=== PATIENT | female | born 1990 | race Caucasian/White ===

== ENCOUNTER 2016-10-20 16:10 | Inpatient (IN) | payer SELFPAY ==
--- NOTE | 2016-10-20 16:55 | ER Document Report ---
ED Medical Screen (RME) - General Chief Complaint: Neck Problem Stated Complaint: POSSIBLE ABSCESS Time Seen by Provider: 10/20/16 16:17 Mode of Arrival: Ambulatory Information source: Patient TRAVEL OUTSIDE OF THE [place] IN LAST 30 DAYS: No - HPI Patient complains to provider of: Left neck pain and swelling Notes: 10/20/16 16:54 Patient is a 26-year-old female presenting to the emergency room complaining of 3 day history of swelling with redness and pain to the left neck, denies any injury or trauma, no history of similar symptoms previously, patient does have a tattoo on the site but states it has been there for years, denies any IV drug abuse - Related Data Allergies/Adverse Reactions: No Known Allergies Allergy (Verified 10/20/16 16:13) Past Medical History - Social History Frequency of alcohol use: Social Drug Abuse: None - Past Medical History Cardiac Medical History: Reports: Hx Hypertension Renal/ Medical History: Reports: Hx Ovarian Cysts. Denies: Hx Peritoneal Dialysis GI Medical History: Reports: Hx Endoscopy Musculoskeltal Medical History: Reports Hx Musculoskeletal Trauma Psychiatric Medical History: Reports: Hx Anxiety, Hx Depression Traumatic Medical History: Reports: Hx Fractures - Elbow Past Surgical History: Reports: Hx Adenoidectomy, Hx Oral Surgery - [place] teeth , Hx Tonsillectomy - Immunizations Hx Diphtheria, Pertussis, Tetanus Vaccination: No Physical Exam - Vital signs Vitals: Temp Pulse Resp BP Pulse Ox 98.7 F 105 H 20 144/86 H 95 10/20/16 16:14 10/20/16 16:14 10/20/16 16:14 10/20/16 16:14 10/20/16 16:14 Course - Vital Signs Vital signs: Temp Pulse Resp BP Pulse Ox 98.7 F 105 H 20 144/86 H 95 10/20/16 16:14 10/20/16 16:14 10/20/16 16:14 10/20/16 16:14 10/20/16 16:14
[2016-10-20] MEDS ORDERED: CLINDAMYCIN PHOSPHATE INJ 300 MG/2 ML SDV IV ONE (17:05)
[2016-10-20 17:19] LABS: ABSOLUTE EOSINOPHILS # (AUTO) 0.2 10^3/uL (0.0-0.6); ABSOLUTE MONOCYTES (AUTO) 0.9 10^3/uL (0.1-1.4); ABSOLUTE NEUT (AUTO) 6.4 10^3/uL (1.7-8.2); BASOPHILS % (AUTO) 0.3 % (0-2); HEMATOCRIT 39.8 % (36.0-47.0); HEMOGLOBIN 13.9 g/dL (12.0-15.5); HGB HCT DIFFERENCE 1.9; LYMPHOCYTES % (AUTO) 28.5 % (13-45); MEAN CORPUSCULAR HEMOGLOBIN 30.9 pg (27.0-33.4); MEAN CORPUSCULAR VOLUME 88 fl (80-97); MONOCYTES % (AUTO) 8.7 % (3-13); RED BLOOD COUNT 4.51 10^6/uL (3.72-5.28); RED CELL DISTRIBUTION WIDTH 13.8 % (11.5-14.0); SEGMENTED NEUTROPHILS % (AUTO) 60.5 % (42-78); WHITE BLOOD COUNT 10.6 10^3/uL (4.0-10.5)
[2016-10-20 17:35] LABS: ALANINE AMINOTRANSFERASE 25 U/L (9-52); ALBUMIN 3.9 g/dL (3.5-5.0); ALKALINE PHOSPHATASE 102 U/L (38-126); ANION GAP 11 (5-19); ASPARTATE AMINO TRANSFERASE 20 U/L (14-36); BILIRUBIN,DIRECT 0.4 mg/dL (0.0-0.4); BILIRUBIN,TOTAL 0.6 mg/dL (0.2-1.3); BLOOD UREA NITROGEN 2 mg/dL (7-20); CALCIUM 9.6 mg/dL (8.4-10.2); CARBON DIOXIDE 32 mmol/L (22-30); CHLORIDE 95 mmol/L (98-107); CREATININE RESULT 0.54 mg/dL (0.52-1.25); GLUCOSE 87 mg/dL (75-110); POTASSIUM 3.1 mmol/L (3.6-5.0); SODIUM 137.6 mmol/L (137-145); TOTAL PROTEIN 7.3 g/dL (6.3-8.2)
[2016-10-20] MEDS ORDERED: NORMAL SALINE 1000 ML 1,000 ML IV ONE (17:42)
[2016-10-20] MEDS ORDERED: MORPHINE SULFATE 10 MG/ML INJ IV ONE (17:42)
--- NOTE | 2016-10-20 17:43 | ER Document Report ---
ED General - General Chief Complaint: Neck Problem Stated Complaint: POSSIBLE ABSCESS Time Seen by Provider: 10/20/16 16:17 Mode of Arrival: Ambulatory Information source: Patient Notes: 26-year-old female presents with 4 day duration of swelling left lateral neck. Patient denies any fevers states he feels very warm tender to palpation TRAVEL OUTSIDE OF THE [place] IN LAST 30 DAYS: No - HPI Onset: Last week - Hoarseness for 1 week Onset/Duration: Persistent Quality of pain: Achy Severity: Mild Pain Level: 2 Associated symptoms: None Exacerbated by: Denies Relieved by: Denies Similar symptoms previously: No Recently seen / treated by doctor: No - Related Data Allergies/Adverse Reactions: No Known Allergies Allergy (Verified 10/20/16 16:13) Past Medical History - General Information source: Patient - Social History Smoking Status: Current Every Day Smoker Cigarette use (# per day): Yes Chew tobacco use (# tins/day): No Smoking Education Provided: No Frequency of alcohol use: Social Drug Abuse: None Family History: Arthritis, CAD, CVA, DM, Hyperlipidemia, Hypertension, Malignancy, Thyroid Disfunction - Past Medical History Cardiac Medical History: Reports: Hx Hypertension Renal/ Medical History: Reports: Hx Ovarian Cysts. Denies: Hx Peritoneal Dialysis GI Medical History: Reports: Hx Endoscopy Musculoskeltal Medical History: Reports Hx Musculoskeletal Trauma Psychiatric Medical History: Reports: Hx Anxiety, Hx Depression Traumatic Medical History: Reports: Hx Fractures - Elbow Past Surgical History: Reports: Hx Adenoidectomy, Hx Oral Surgery - [place] teeth , Hx Tonsillectomy - Immunizations Hx Diphtheria, Pertussis, Tetanus Vaccination: No Review of Systems - Review of Systems Notes: REVIEW OF SYSTEMS: CONSTITUTIONAL : Denies fever, chills, or sweats. Denies recent illness. EENT: Admits to left lateral neck pain CARDIOVASCULAR: Denies chest pain. Denies palpitations or racing or irregular heart beat. Denies ankle edema. RESPIRATORY: Denies cough, cold, or chest congestion. Denies shortness of breath, difficulty breathing, or wheezing. GASTROINTESTINAL: Denies abdominal pain or distention. Denies nausea, vomiting , or diarrhea. Denies blood in vomitus, stools, or per rectum. Denies black, tarry stools. Denies constipation. GENITOURINARY: Denies difficulty urinating, painful urination, burning, frequency, blood in urine, or discharge. FEMALE GENITOURINARY: Denies vaginal bleeding, heavy or abnormal periods, irregular periods. Denies vaginal discharge or odor. MUSCULOSKELETAL: Denies back or neck pain or stiffness. Denies joint pain or swelling. SKIN: Denies rash, lesions or sores. HEMATOLOGIC : Denies easy bruising or bleeding. LYMPHATIC: Denies swollen, enlarged glands. NEUROLOGICAL: Denies confusion or altered mental status. Denies passing out or loss of consciousness. Denies dizziness or lightheadedness. Denies headache. Denies weakness or paralysis or loss of use of either side. Denies problems with gait or speech. Denies sensory loss, numbness, or tingling. Denies seizures. PSYCHIATRIC: Denies anxiety or stress. Denies depression, suicidal ideation, or homicidal ideation. ALL OTHER SYSTEMS REVIEWED AND NEGATIVE. PHYSICAL EXAMINATION: GENERAL: Well-appearing, well-nourished and in no acute distress. HEAD: Atraumatic, normocephalic. EYES: Pupils equal round and reactive to light, extraocular movements intact, conjunctiva are normal. ENT: Nares patent, oropharynx clear without exudates. Moist mucous membranes. NECK: Normal range of motion, supple without lymphadenopathy LUNGS: Breath sounds clear to auscultation bilaterally and equal. No wheezes rales or rhonchi. HEART: Regular rate and rhythm without murmurs ABDOMEN: Soft, nontender, nondistended abdomen. No guarding, no rebound. No masses appreciated. Female : deferred Musculoskeletal: Normal range of motion, no pitting or edema. No cyanosis. NEUROLOGICAL: Cranial nerves grossly intact. Normal speech, normal gait. Normal sensory, motor exams PSYCH: Normal mood, normal affect. SKIN: Area of erythema of the whole lateral left neck stopping at the jawline fluctuance and firmness of 5 x 6 cm area on the left Dictation was performed using [employer] voice recognition software Physical Exam - Vital signs Vitals: Temp Pulse Resp BP Pulse Ox 98.7 F 105 H 20 144/86 H 95 10/20/16 16:14 10/20/16 16:14 10/20/16 16:14 10/20/16 16:14 10/20/16 16:14 Course - Re-evaluation Re-evalutation: 10/20/16 17:[address] pending at this time concern for abscess noted surgeon immediately brought into the room who agrees with my assessment 10/20/16 18:41 ct notes cellulitis, dr pool requests medicine admission 10/20/16 20:37 Bedside ultrasound performed by surgeon notes no abscess either, I will admit the patient to hospitalist service - Vital Signs Vital signs: Temp Pulse Resp BP Pulse Ox 98.5 F 97 16 134/83 H 96 10/20/16 20:10 10/20/16 20:10 10/20/16 20:10 10/20/16 20:10 10/20/16 20:10 - Laboratory Result Diagrams: 10/20/16 17:04 10/20/16 17:04 Laboratory results interpreted by me: 10/20/16 10/20/16 17:04 17:04 WBC 10.6 H Potassium 3.1 L Chloride 95 L Carbon Dioxide 32 H BUN 2 L - Diagnostic Test Radiology reviewed: Image reviewed, Reports reviewed - Cellulitis Discharge - Discharge Clinical Impression: Cellulitis Qualifiers: Site of cellulitis: neck Qualified Code(s): L03.221 - Cellulitis of neck Condition: Stable Disposition: ADMITTED INPATIENT Admitting Provider: Hospitalist Unit Admitted: Medical Floor
--- NOTE | 2016-10-20 18:22 | RADIOLOGY REPORT (SQ) ---
EXAM DESCRIPTION: CT SOFT TISSUE NECK WITH COMPLETED DATE/TIME: 10/20/2016 6:08 pm REASON FOR STUDY: LEFT NECK SWELLING COMPARISON: None. TECHNIQUE: Post IV contrasted scanning from skull base through lung apices with review of bone, soft tissue and lung windows. Reconstructed coronal and sagittal MPR images reviewed. All images stored on PACS. All CT scanners at this facility use dose modulation, iterative reconstruction, and/or weight based d osing when appropriate to reduce radiation dose to as low as reasonably achievable (ALARA). [facility]: Dose Right [facility]: CareDose [facility]: Dose Right [facility]: Teradose 4D [facility]: [employer]oinvest CONTRAST TYPE AND DOSE: contrast/concentration: Isovue 370.00 mg/ml; Total Contrast Delivered: 75.0 ml; Total Saline Delivered: 55.0 ml RENAL FUNCTION: None required. The patient is less than 50 years old. RADIATION DOSE: Up-to-date CT equipment and radiation dose reduction techniques were employed. CTDIv ol: 17.4 mGy. DLP: 507 mGy-cm. . LIMITATIONS: None. FINDINGS: SKULL BASE: Intact. MAJOR SALIVARY GLANDS: No solid or cystic masses. No inflammatory changes. LYMPHADENOPATHY: Generally subcentimeter scattered bilateral lymph nodes. MUCOSAL MASSES OR ASYMMETRY: No mucosal masses or asymmetry. LARYNX/CORDS: No abnormal findings. VASCULAR STRUCTURES: The major vessels are patent. LUNG APICES: Clear. BONES: Intact. THYROID: Normal size. No masses. PARANASAL SINUSES: Clear. OTHER: There is skin thickening and subcutaneous stranding over the left neck roughly below the level of the angle of the jaw extending inferiorly. The left sternocleidomastoid looks slightly enlarged. Along its superficial aspect, there is a focal area of roughly rounded low density which measures a pproximately 1 cm. This could represent a developing small abscess. Please see the following images , axial image 43 and adjacent, coronal image 44 and adjacent. IMPRESSION: 1. Inflammatory changes are suggested in the left neck, likely cellulitis with associate d left sternocleidomastoid myositis. Worrisome for infection. No radiopaque foreign body. Potentia l forming abscess along the superficial aspect of the left sternocleidomastoid. At present, this is ill-defined and may not be drainable. TECHNICAL DOCUMENTATION: JOB ID: [id number] Quality ID # [id number]: Final reports with documentation of one or more dose reduction techniques (e.g., Au tomated exposure control, adjustment of the mA and/or kV according to patient size, use of iterative reconstruction technique) 2010 [employer]- All Rights Reserved
--- NOTE | 2016-10-20 19:47 | OPERATIVE REPORT E ---
Operative Report NAME: CHERYL EARL : 1990 AGE: 26Y DATE OF SURGERY: 10/20/2016 ROOM: PREOPERATIVE DIAGNOSIS: Cellulitis, rule out deep soft tissue infection left neck. POSTOPERATIVE DIAGNOSIS: Cellulitis, rule out deep soft tissue infection left neck with cervical adenopathy and myositis with cellulitis. OPERATION: Focused ultrasound of the neck. SURGEON: POPPY FARLEY M.D. ANESTHESIA: None. DRAINS: None. TISSUE REMOVED OR ALTERED: None. COMPLICATIONS: None. SUMMARY OF PROCEDURE: The patient's left neck was exposed. Variable frequency linear transducer was used to scan the left neck. Findings were significant for generalized edema of the subcutaneous edema, an enlarged lymph node compartment 3 left neck, and generalized edema of the sternocleidomastoid muscle. There was no discrete abscess identified. Left thyroid lobe appeared normal. IMPRESSION: Deep soft tissue infection with adenopathy left neck; no radiographic evidence of drainable fluid collection at this moment. RECOMMENDATIONS: 1. Agree with admission, IV antibiotics, and cautious observation. 2. If infection does not resolve, further investigation including ENT consultation, flexible laryngoscopy, and even percutaneous aspiration of the soft tissue for wound culture may be appropriate. DICTATING PHYSICIAN: POPPY FARLEY M.D. [id number] PHY#: [id number] ID: [id number] JOB#: [id number] ACCT: [id number] cc:POPPY FARLEY M.D. >
[2016-10-20] MEDS ORDERED: CEFAZOLIN 1 GM/D5W RTU 1 GM/50 ML RTUPB IV ONE (20:00)
[2016-10-20] MEDS ORDERED: VANCOMYCIN HCL 0 MG in DEXTROSE 5%-WATER 250 ML IV NR (21:30)
[2016-10-20] MEDS ORDERED: NICOTINE 21 MG/24 HR PATCH.TD24 TD PRN (21:35)
[2016-10-20] MEDS ORDERED: GLUCAGON,HUMAN RECOMB 1 MG INJ IM PRN (21:38)
[2016-10-20] MEDS ORDERED: DEXTROSE 40% GEL 15 GM TUBE PO PRN ×2 (21:38)
[2016-10-20] MEDS ORDERED: DEXTROSE 50%-WATER 25 GM/50 ML DISP.SYRIN IV PRN ×2 (21:38)
[2016-10-20] MEDS ORDERED: PROMETHAZINE HCL 25 MG TABLET PO PRN (21:39)
[2016-10-20] MEDS ORDERED: ACETAMINOPHEN 325 MG TABLET PO PRN (21:39)
[2016-10-20] MEDS ORDERED: VANCOMYCIN HCL INJ 1000 MG VIAL IV PRN (21:40)
[2016-10-20 21:41] LABS: ADD ON TESTING BLD IN LAB ACKNOWLEDGE
[2016-10-20] MEDS ORDERED: VANCOMYCIN HCL 2,000 MG in DEXTROSE 5%-WATER 500 ML IV ONE (22:00)
--- NOTE | 2016-10-20 22:01 | PDOC H&P ---
History of Present Illness Admission Date/PCP: 10/20/16 19:31 PCP None Patient complains of: Swelling pain and redness, left neck History of Present Illness: CHERYL EARL is a 26 year old obese female, with underlying hepatitis C, treatment not felt necessary according to patient, distant history of peptic ulcer disease, mild anxiety and depression, without suicidal or homicidal ideation, and with a history of intravenous drug use, none for at least one year, who presents to the emergency room for evaluation of above complaints. Patient has been discussed with emergency room physician who evaluated the patient. She describes a 4 day history of slowly progressive swelling and tenderness on the left side of her neck, combined with a 24 hour history of slowly progressive redness and inflammation. Associated fever and chills, along with 2 episodes of nausea and vomiting,, without blood, and 4-5 episodes per day of mild diarrhea for the past 2 weeks, also without blood. No history of C. difficile infection. No antibiotic use recently. No difficulty breathing or swallowing. Denies any trauma to the area, including insect bite or puncture wound. Has had previous "boils" on her abdominal wall, with one having to be incised and drained. Positive history of MRSA infection. Tetanus booster 2013. Prior to my being contacted, patient had been seen and evaluated by on-call general surgery, Dr. Prieto, who reviewed her CT scan results, along with performance of a bedside ultrasound. At 9:40 PM, 10/20/2016, I discussed the patient by phone with Dr. Prieto. He felt there was no need for surgical intervention at this time, and did not anticipate such, but stated he would follow the patient in consultation. Dictation via voice recognition software. Laboratory results are listed in [employer] and are reviewed. X-ray summary results are listed below, with full report(s) reviewed. . Social history/personal habits: . Has children. Unemployed. Pack of cigarettes per day. Occasional alcohol. No current illicit drug use; see above comments. No known drug allergies. Home medications none. REVIEW OF SYSTEMS: Constitutional: See history and present illness. Eyes: Wears glasses. ENT: No swallowing problems or complaints. Denies hearing loss. Pulmonary: No current complaints. Cardiovascular: No current complaints, including chest pain. Gastrointestinal: See history and present illness. Skin: See history and present illness. Hematologic: Denies easy bruising. Neurologic: No current complaints, including numbness or tingling. Musculoskeletal: No current or chronic joint complaints, such as arthritis. Psychiatric: Mild anxiety and depression. Denies suicidal or homicidal ideation. Endocrine: No current complaints, including polyuria. Genitourinary: No current complaints, including dysuria. PHYSICAL EXAMINATION: 5 feet 4 inches tall. 104.8 kg. BMI 39.7 kg/m.Temperature 98.5. Pulse 97 and regular. Blood pressure 134/83. Respirations are 16 and unlabored. 96% saturation on room air. Obese otherwise well-developed young female appearing approximately her stated age. Appears to feel a bit under the weather, so to speak, along with mildly anxious. No agitation. Emergency room nursing program director Sukumar is present. Skin is warm and dry. No grossly obvious evidence of rash in areas of skin examined. No subcutaneous nodules palpated. No evidence of track aguilera on antecubital fossae, or in area of involvement of left neck. ENT: Hearing grossly normal to normal conversation. Tongue midline on protrusion pink and slightly tacky. Obvious mild soft tissue swelling of the left side of her neck. Inflammation extends over essentially the entire left neck area, abutting the left angle of the mandible. Somewhat posteriorly in this area of involvement, there is approximately a 8 x 4 cm area of slightly increased swelling and induration along with mild tenderness. No crepitus fluctuance or expressible discharge. No obvious skin entrance site. Examination of the intraoral cavity reveals somewhat poor dentition. No inflammation. Palpation of the buccal mucosa and mucosa overlying the mandible fails to reveal any tenderness. Eyes: No scleral icterus. Pupils equal and reactive to light at 4 mm. [place] conjunctivae. Neck is supple and nontender on the right to gentle active range of motion and palpation. Midline trachea. No palpable thyroid nodule mass enlargement or tenderness. Lymphatic: No palpable cervical or clavicular nodes. Neck and lymphatic exams limited by patient body habitus, along with obviously the above described process. Psychiatric: Reasonable insight into acute and chronic medical issues. Oriented to time location and why here. Lungs: Auscultation reveals clear and equal breath sounds bilaterally. No use of accessory respiratory muscles. Cardiovascular: Heart regular rate and rhythm, without gallop murmur or rub. No carotid or abdominal aortic bruits. No ankle or pedal edema. Palpable dorsalis pedis pulses. Abdomen:soft obese nontender with positive bowel sounds. Unable to adequately evaluate abdomen for masses or organomegaly due to body habitus. Extremities: Feet are warm and dry. No calf tenderness to compression. No grossly obvious visual evidence of calf swelling. Gentle manipulation of lower extremities fails to reveal any obvious evidence of injury or instability to knees hips or ankles. Neurologic: Moves upper extremities grossly normally. Patellar reflexes absent. Absent Babinski. Light touch is intact at feet. Dorsiflexion and plantarflexion of feet 5 / 5 and symmetric. Past Medical History Cardiac Medical History: Denies: Atrial Fibrillation, Congestive Heart Failure, Coronary Artery Disease, DVT, Myocardial Infarction, Hyperlipidema, Hypertension, Pulmonary Embolism Pulmonary Medical History: Denies: Asthma, Chronic Obstructive Pulmonary Disease (COPD), Sleep Apnea EENT Medical History: Reports: Eyes - Glasses Denies: Ears, Throat Neurological Medical History: Denies: Hemorrhagic CVA, Ischemic CVA, Seizures Endocrine Medical History: Denies: Diabetes Mellitus Type 1, Diabetes Mellitus Type 2, Hyperthyroidism, Hypothyroidism Renal/ Medical History: Reports: None GI Medical History: Denies: Cirrhosis, Gastroesophageal Reflux Disease, Peptic Ulcer Disease Musculoskeltal Medical History: Denies: Arthritis Skin Medical History: Reports: None Psychiatric Medical History: Reports: Depression, General Anxiety Disorder, Tobacco Dependency, Other - History of IV drug use; none for just over a year, according to patient. Denies: Alcohol Dependency Hematology: Reports: None Infectious Medical History: Reports: Hepatitis C, Methicillin-Resistant Staph Aureus Denies: Clostridium Difficile, Hepatitis B Past Surgical History Past Surgical History: Reports: Adenoidectomy - Fourth grade, Tonsillectomy - Fourth grade, Other - [place] teeth extraction, 2006 Social History Information Source: Patient, Emergency Med Personnel, [facility] Records Lives with: Spouse/Significant other Smoking Status: Current Every Day Smoker Frequency of Alcohol Use: Occasional Hx Recreational Drug Use: Yes - History of IV drug use, none for over a year, according to patient - Advance Directive Resuscitation Status: Full Code Surrogate healthcare decision maker:: Mother Family History Family History: Arthritis, CAD, CVA, DM, Hyperlipidemia, Hypertension, Malignancy, Thyroid Disfunction Parental Family History Reviewed: Yes - Mother with arthritis and fibromyalgia; uncertain health status of father Children Family History Reviewed: Yes - Healthy Sibling(s) Family History Reviewed.: Yes - Healthy Medication/Allergy Home Medications: RX: Clindamycin HCl 450 mg PO Q6H #60 capsule 10/23/16 Tramadol HCl [Ultram 50 mg Tablet] 50 mg PO Q4HP PRN #18 tablet 10/23/16 Allergies/Adverse Reactions: No Known Allergies Allergy (Verified 10/20/16 16:13) Physical Exam Vital Signs: Temp Pulse Resp BP Pulse Ox 98.5 F 97 16 134/83 H 96 10/20/16 20:10 10/20/16 20:10 10/20/16 20:10 10/20/16 20:10 10/20/16 20:10 Results Impressions: Soft Tissue Neck CT 10/20/16 16:53 IMPRESSION: 1. Inflammatory changes are suggested in the left neck, likely cellulitis with associated left sternocleidomastoid myositis. Worrisome for infection. No radiopaque foreign body. Potential forming abscess along the superficial aspect of the left sternocleidomastoid. At present, this is ill- defined and may not be drainable. Assessment & Plan - Diagnosis (1) History of MRSA infection Is this a current diagnosis for this admission?: Yes Plan: Contact precautions. Intravenous vancomycin. (2) Cellulitis of neck Is this a current diagnosis for this admission?: Yes Plan: Ancef and intravenous vancomycin; pharmacy to assist with vancomycin dosing. Head of bed elevated at least 60 at all times. Patient instructed to notify nursing staff immediately should she began having any difficulty breathing and/or swallowing her own saliva. Orders for nursing staff to call physician immediately for such notification entered into chart. Discussed with evaluating general surgeon, who has agreed to follow patient. He feels no need for incision and drainage at this point in time. Does not anticipate same. I have strongly encouraged patient to be careful getting out of bed, to avoid a fall with injury. Knee high SCDs for DVT prophylaxis, along with subcutaneous Lovenox. Impression and plans were discussed with patient, who concurs. Time spent in evaluation and management of patient: 64 minutes. (3) Hypokalemia Is this a current diagnosis for this admission?: Yes Plan: Potassium replacement with follow-up chemistry. Magnesium level pending. (4) Hepatitis C Qualifiers: Viral hepatitis chronicity: unspecified Hepatic coma status: without hepatic coma Qualified Code(s): B19.20 - Unspecified viral hepatitis C without hepatic coma Is this a current diagnosis for this admission?: Yes (5) Hx of intravenous drug use, in remission Is this a current diagnosis for this admission?: Yes Plan: No evidence of track aguilera on antecubital fossae, or in area of involvement of left neck. Urine drug screen pending. (6) Tobacco dependency Is this a current diagnosis for this admission?: Yes Plan: As needed nicotine patch. - Time Time Spent: 50 to 70 Minutes Medications reviewed and adjusted accordingly: Yes Anticipated discharge: Home Within: within 72 hours - Inpatient Certification Based on my medical assessment, after consideration of the patient's comorbidities, presenting symptoms, or acuity I expect that the services needed warrant INPATIENT care.: Yes I certify that my determination is in accordance with my understanding of Medicare's requirements for reasonable and necessary INPATIENT services [42 CFR 412.3e].: Yes Medical Necessity: Need Close Monitoring Due to Risk of Patient Decompensation, Need for IV Antibiotics, Risk of Complication if Not Cared For in Hospital Post Hospital Care: D/C or Transfer Summary
[2016-10-20] MEDS: OXYCODONE HCL IR 5 MG TABLET PO PRN (22:05)
[2016-10-20] MEDS: POTASSI CL 20 MEQ/50 ML RIDER 20 MEQ/50 ML RTUPB IV SCH (22:51)
[2016-10-20 23:49] LABS: URINE BARBITURATES SCREEN NEGATIVE; URINE METHADONE SCREEN NEGATIVE; URINE PHENCYCLIDINE SCREEN NEGATIVE
[2016-10-20 23:51] LABS: URINE OPIATES LOW UNCONFIRMED POSITIVE
[2016-10-21] MEDS: POTASSI CL 20 MEQ/50 ML RIDER 20 MEQ/50 ML RTUPB IV SCH ×2 (00:51→04:45)
[2016-10-21] MEDS ORDERED: CEFAZOLIN 1 GM/D5W RTU 1 GM/50 ML RTUPB IV SCH (06:00)
[2016-10-21 06:32] LABS: ABSOLUTE EOSINOPHILS # (AUTO) 0.2 10^3/uL (0.0-0.6); ABSOLUTE LYMPHOCYTES (AUTO) 2.3 10^3/uL (0.5-4.7); ABSOLUTE MONOCYTES (AUTO) 0.8 10^3/uL (0.1-1.4); ABSOLUTE NEUT (AUTO) 5.3 10^3/uL (1.7-8.2); BASOPHILS % (AUTO) 0.2 % (0-2); EOSINOPHILS % (AUTO) 2.6 % (0-6); HEMATOCRIT 35.3 % (36.0-47.0); HEMOGLOBIN 12.3 g/dL (12.0-15.5); HGB HCT DIFFERENCE 1.6; LYMPHOCYTES % (AUTO) 26.4 % (13-45); MEAN CORPUSCULAR HEMOGLOBIN 30.5 pg (27.0-33.4); MEAN CORPUSCULAR HGB CONC 34.8 g/dL (32.0-36.0); MEAN CORPUSCULAR VOLUME 88 fl (80-97); MONOCYTES % (AUTO) 9.3 % (3-13); RED BLOOD COUNT 4.03 10^6/uL (3.72-5.28); RED CELL DISTRIBUTION WIDTH 13.9 % (11.5-14.0); SEGMENTED NEUTROPHILS % (AUTO) 61.5 % (42-78); WHITE BLOOD COUNT 8.6 10^3/uL (4.0-10.5)
[2016-10-21] MEDS: OXYCODONE HCL IR 5 MG TABLET PO PRN (06:36)
[2016-10-21 06:45] LABS: ANION GAP 6 (5-19); BLOOD UREA NITROGEN 3 mg/dL (7-20); CALCIUM 8.8 mg/dL (8.4-10.2); CARBON DIOXIDE 31 mmol/L (22-30); CHLORIDE 103 mmol/L (98-107); CREATININE RESULT 0.51 mg/dL (0.52-1.25); GLUCOSE 95 mg/dL (75-110); POTASSIUM 3.3 mmol/L (3.6-5.0); SODIUM 139.8 mmol/L (137-145)
[2016-10-21] MEDS ORDERED: POTASSIUM CHLORIDE 10 MEQ TABLET.SA PO ONE (07:38)
[2016-10-21] MEDS: DEXTROSE 5%-NORMAL SALINE 1,000 ML IV PRN ×2 (08:39→19:13)
[2016-10-21] MEDS: ENOXAPARIN SODIUM INJ 40 MG/0.4 ML DISP.SYRIN SUBCUT SCH (10:00)
[2016-10-21] MEDS: DOCUSATE SODIUM 100 MG CAPSULE PO SCH ×2 (10:00→18:12)
--- NOTE | 2016-10-21 11:01 | PDOC PROGRESS REPORT ---
Subjective Progress Note for:: 10/21/16 Subjective:: Patient still complaining of pain but feels like the swelling is gone down Physical Exam Vital Signs: Temp Pulse Resp BP Pulse Ox 98.2 F 112 H 16 121/71 99 10/21/16 07:33 10/21/16 07:33 10/21/16 07:33 10/21/16 07:33 10/21/16 07:33 Intake & Output 10/20/16 10/21/16 10/22/16 06:59 06:59 06:59 Intake Total 1150 Output Total 0 Balance 1150 General appearance: PRESENT: mild distress Neck exam: PRESENT: other - Magnitude and extent of erythema and swelling diminished but far from resolved Results Laboratory Results: 10/21/16 06:13 10/21/16 06:13 10/21/16 10/21/16 06:13 06:13 WBC 8.6 RBC 4.03 Hgb 12.3 Hct 35.3 L MCV 88 MCH 30.5 MCHC 34.8 RDW 13.9 Plt Count 203 Seg Neutrophils % 61.5 Lymphocytes % 26.4 Monocytes % 9.3 Eosinophils % 2.6 Basophils % 0.2 Absolute Neutrophils 5.3 Absolute Lymphocytes 2.3 Absolute Monocytes 0.8 Absolute Eosinophils 0.2 Absolute Basophils 0.0 Sodium 139.8 Potassium 3.3 L Chloride 103 Carbon Dioxide 31 H Anion Gap 6 BUN 3 L Creatinine 0.51 L Est GFR ( Amer) > 60 Est GFR (Non-Af Amer) > 60 Glucose 95 Calcium 8.8 Impressions: Soft Tissue Neck CT 10/20/16 16:53 IMPRESSION: 1. Inflammatory changes are suggested in the left neck, likely cellulitis with associated left sternocleidomastoid myositis. Worrisome for infection. No radiopaque foreign body. Potential forming abscess along the superficial aspect of the left sternocleidomastoid. At present, this is ill- defined and may not be drainable. Assessment & Plan - Diagnosis (1) Cellulitis of neck Is this a current diagnosis for this admission?: Yes Plan: Clinically improved but not resolved left neck deep soft tissue infection with myositis. Concomitant decrease in white blood cell count Plan: 1. Continue current management 2. Again explained to the patient that although improved, we have not achieved resolution of her infection and further intervention may be required.
[2016-10-21] MEDS: CLINDAMYCIN 900 MG/D5W RTU 50 ML IV SCH ×2 (13:32→21:37)
[2016-10-21] MEDS: MORPHINE SULFATE 10 MG/ML INJ IV PRN ×2 (13:33→19:22)
[2016-10-21] MEDS: VANCOMYCIN HCL 1,500 MG in DEXTROSE 5%-WATER 250 ML IV SCH ×2 (14:06→20:39)
--- NOTE | 2016-10-21 15:57 | PDOC PROGRESS REPORT ---
Subjective Progress Note for:: 10/21/16 Subjective:: Patient is seen on morning rounds. Resting comfortably in bed at the present time. She states she still has pain in the left side of her neck, but feels is not quite as swollen. She denies any trauma or insect bite to the area. She states she had a little red bump at the base of her left neck 2 days ago and then it dramatically increased in size and area. Denies any illicit IV drug use in the last year. Physical Exam Vital Signs: Temp Pulse Resp BP Pulse Ox 99.0 F 109 H 15 109/69 99 10/21/16 11:52 10/21/16 14:00 10/21/16 11:52 10/21/16 11:52 10/21/16 11:52 Intake & Output 10/20/16 10/21/16 10/22/16 06:59 06:59 06:59 Intake Total 1150 650 Output Total 0 500 Balance 1150 150 General appearance: PRESENT: no acute distress, morbidly obese, well-developed, well-nourished Head exam: PRESENT: atraumatic, normocephalic Eye exam: PRESENT: conjunctiva pink, EOMI, PERRLA. ABSENT: scleral icterus Ear exam: PRESENT: normal external ear exam Mouth exam: PRESENT: moist, tongue midline Neck exam: ABSENT: carotid bruit, JVD, lymphadenopathy, thyromegaly Respiratory exam: PRESENT: clear to auscultation radha. ABSENT: rales, rhonchi, wheezes Cardiovascular exam: PRESENT: RRR. ABSENT: diastolic murmur, rubs, systolic murmur Pulses: PRESENT: normal dorsalis pedis pul Vascular exam: PRESENT: normal capillary refill GI/Abdominal exam: PRESENT: normal bowel sounds, soft. ABSENT: distended, guarding, mass, organolmegaly, rebound, tenderness Rectal exam: PRESENT: deferred Extremities exam: PRESENT: full ROM. ABSENT: calf tenderness, clubbing, pedal edema Neurological exam: PRESENT: alert, awake, oriented to person, oriented to place , oriented to time, oriented to situation, CN II-XII grossly intact. ABSENT: motor sensory deficit Psychiatric exam: PRESENT: appropriate affect, normal mood. ABSENT: homicidal ideation, suicidal ideation Skin exam: PRESENT: abrasion, erythema - Marked area of erythema on left neck decreasing in size., warm, other Results Laboratory Results: 10/21/16 06:13 10/21/16 06:13 10/21/16 10/21/16 06:13 06:13 WBC 8.6 RBC 4.03 Hgb 12.3 Hct 35.3 L MCV 88 MCH 30.5 MCHC 34.8 RDW 13.9 Plt Count 203 Seg Neutrophils % 61.5 Lymphocytes % 26.4 Monocytes % 9.3 Eosinophils % 2.6 Basophils % 0.2 Absolute Neutrophils 5.3 Absolute Lymphocytes 2.3 Absolute Monocytes 0.8 Absolute Eosinophils 0.2 Absolute Basophils 0.0 Sodium 139.8 Potassium 3.3 L Chloride 103 Carbon Dioxide 31 H Anion Gap 6 BUN 3 L Creatinine 0.51 L Est GFR ( Amer) > 60 Est GFR (Non-Af Amer) > 60 Glucose 95 Calcium 8.8 Impressions: Soft Tissue Neck CT 10/20/16 16:53 IMPRESSION: 1. Inflammatory changes are suggested in the left neck, likely cellulitis with associated left sternocleidomastoid myositis. Worrisome for infection. No radiopaque foreign body. Potential forming abscess along the superficial aspect of the left sternocleidomastoid. At present, this is ill- defined and may not be drainable. Assessment & Plan - Diagnosis (1) Cellulitis of neck Is this a current diagnosis for this admission?: Yes Plan: Improving around the marked area. There is no area of fluctuance palpable. Presently on IV clindamycin and vancomycin due to her MRSA history. (2) History of MRSA infection Is this a current diagnosis for this admission?: Yes Plan: We will continue Vanco until blood cultures have resolved. (3) Hypokalemia Is this a current diagnosis for this admission?: Yes Plan: Repleted and monitor. (4) Hepatitis C Qualifiers: Viral hepatitis chronicity: unspecified Hepatic coma status: without hepatic coma Qualified Code(s): B19.20 - Unspecified viral hepatitis C without hepatic coma Is this a current diagnosis for this admission?: Yes Plan: Chronic and stable secondary to IV drug use. (5) Hx of intravenous drug use, in remission Is this a current diagnosis for this admission?: Yes Plan: She denies any use in the last 1 year. (6) Tobacco dependency Is this a current diagnosis for this admission?: Yes Plan: Nicotine transdermal as needed. - Time Time Spent with patient: 25-34 minutes Critical Time spent with patient: 15-24 minutes Smoking Cessation Education: 3 to 10 minutes Medications reviewed and adjusted accordingly: Yes Anticipated discharge: Home
[2016-10-22] MEDS: VANCOMYCIN HCL 1,500 MG in DEXTROSE 5%-WATER 250 ML IV SCH (04:01)
[2016-10-22] MEDS: OXYCODONE HCL IR 5 MG TABLET PO PRN (04:02)
[2016-10-22 05:09] LABS: ABSOLUTE EOSINOPHILS # (AUTO) 0.2 10^3/uL (0.0-0.6); ABSOLUTE LYMPHOCYTES (AUTO) 2.6 10^3/uL (0.5-4.7); ABSOLUTE MONOCYTES (AUTO) 0.6 10^3/uL (0.1-1.4); ABSOLUTE NEUT (AUTO) 4.6 10^3/uL (1.7-8.2); BASOPHILS % (AUTO) 0.1 % (0-2); EOSINOPHILS % (AUTO) 2.7 % (0-6); HEMATOCRIT 32.6 % (36.0-47.0); HEMOGLOBIN 11.5 g/dL (12.0-15.5); HGB HCT DIFFERENCE 1.9; LYMPHOCYTES % (AUTO) 32.2 % (13-45); MEAN CORPUSCULAR HEMOGLOBIN 31.1 pg (27.0-33.4); MEAN CORPUSCULAR HGB CONC 35.1 g/dL (32.0-36.0); MEAN CORPUSCULAR VOLUME 88 fl (80-97); MONOCYTES % (AUTO) 7.9 % (3-13); RED BLOOD COUNT 3.69 10^6/uL (3.72-5.28); RED CELL DISTRIBUTION WIDTH 14.1 % (11.5-14.0); SEGMENTED NEUTROPHILS % (AUTO) 57.1 % (42-78)
[2016-10-22 05:26] LABS: ANION GAP 7 (5-19); BLOOD UREA NITROGEN 2 mg/dL (7-20); CALCIUM 8.3 mg/dL (8.4-10.2); CARBON DIOXIDE 26 mmol/L (22-30); CHLORIDE 105 mmol/L (98-107); CREATININE RESULT 0.45 mg/dL (0.52-1.25); GLUCOSE 112 mg/dL (75-110); MAGNESIUM 1.9 mg/dL (1.6-2.3); POTASSIUM 3.1 mmol/L (3.6-5.0); SODIUM 137.9 mmol/L (137-145)
[2016-10-22] MEDS: DEXTROSE 5%-NORMAL SALINE 1,000 ML IV PRN (05:39)
[2016-10-22] MEDS: CLINDAMYCIN 900 MG/D5W RTU 50 ML IV SCH ×3 (05:39→21:11)
[2016-10-22] MEDS: MORPHINE SULFATE 10 MG/ML INJ IV PRN ×3 (07:58→21:11)
[2016-10-22] MEDS: ENOXAPARIN SODIUM INJ 40 MG/0.4 ML DISP.SYRIN SUBCUT SCH (10:21)
[2016-10-22] MEDS: POTASSIUM CHLORIDE 10 MEQ TABLET.SA PO SCH ×2 (10:21→21:11)
[2016-10-22] MEDS: DOCUSATE SODIUM 100 MG CAPSULE PO SCH ×2 (10:22→18:44)
--- NOTE | 2016-10-22 11:25 | PDOC PROGRESS REPORT ---
Subjective Progress Note for:: 10/22/16 Subjective:: Patient states that the pain and swelling of her left neck is improved Physical Exam Vital Signs: Temp Pulse Resp BP Pulse Ox 98.1 F 95 18 131/87 H 100 10/22/16 07:48 10/22/16 07:48 10/22/16 07:48 10/22/16 07:48 10/22/16 07:48 Intake & Output 10/21/16 10/22/16 10/23/16 06:59 06:59 06:59 Intake Total 1150 4030 Output Total 0 500 Balance 1150 3530 Weight 108 kg General appearance: PRESENT: no acute distress Head exam: PRESENT: atraumatic, normocephalic Neck exam: PRESENT: other - Erythema and edema are improving, as is the induration, and tenderness. Results Laboratory Results: 10/22/16 04:40 10/22/16 04:40 10/22/16 10/22/16 04:40 04:40 WBC 8.0 RBC 3.69 L Hgb 11.5 L Hct 32.6 L MCV 88 MCH 31.1 MCHC 35.1 RDW 14.1 H Plt Count 177 Seg Neutrophils % 57.1 Lymphocytes % 32.2 Monocytes % 7.9 Eosinophils % 2.7 Basophils % 0.1 Absolute Neutrophils 4.6 Absolute Lymphocytes 2.6 Absolute Monocytes 0.6 Absolute Eosinophils 0.2 Absolute Basophils 0.0 Sodium 137.9 Potassium 3.1 L Chloride 105 Carbon Dioxide 26 Anion Gap 7 BUN 2 L Creatinine 0.45 L Est GFR ( Amer) > 60 Est GFR (Non-Af Amer) > 60 Glucose 112 H Calcium 8.3 L Magnesium 1.9 10/20/16 23:00 Nasophary ([facility] Only) MRSA Surveillance Culture - Final NO MRSA RECOVERED Impressions: Soft Tissue Neck CT 10/20/16 16:53 IMPRESSION: 1. Inflammatory changes are suggested in the left neck, likely cellulitis with associated left sternocleidomastoid myositis. Worrisome for infection. No radiopaque foreign body. Potential forming abscess along the superficial aspect of the left sternocleidomastoid. At present, this is ill- defined and may not be drainable. Assessment & Plan - Plan Summary Plan Summary: Continue antibiotic therapy.
--- NOTE | 2016-10-22 11:53 | PDOC PROGRESS REPORT ---
Subjective Progress Note for:: 10/22/16 Subjective:: Patient is seen on morning rounds. Resting comfortably in bed at the present time. She states she still has pain in the left side of her neck, but feels is not quite as swollen as yesterday or as painful. She denies any trauma or insect bite to the area. She states she had a little red bump at the base of her left neck 2 days ago and then it dramatically increased in size and area. She denies any illicit IV drug use in the last year. Physical Exam Vital Signs: Temp Pulse Resp BP Pulse Ox 98.1 F 95 18 131/87 H 100 10/22/16 07:48 10/22/16 07:48 10/22/16 07:48 10/22/16 07:48 10/22/16 07:48 Intake & Output 10/21/16 10/22/16 10/23/16 06:59 06:59 06:59 Intake Total 1150 4030 Output Total 0 500 Balance 1150 3530 Weight 108 kg General appearance: PRESENT: no acute distress, morbidly obese, well-developed, well-nourished Head exam: PRESENT: atraumatic, normocephalic Eye exam: PRESENT: conjunctiva pink, EOMI, PERRLA. ABSENT: scleral icterus Ear exam: PRESENT: normal external ear exam Mouth exam: PRESENT: moist, tongue midline Neck exam: PRESENT: other - left side lower neck with hard nonfluctuant 3cm x 5 cm area with mild erythema. Much improved from yesterday. ABSENT: carotid bruit , JVD, lymphadenopathy, thyromegaly Respiratory exam: PRESENT: clear to auscultation radha. ABSENT: rales, rhonchi, wheezes Cardiovascular exam: PRESENT: RRR. ABSENT: diastolic murmur, rubs, systolic murmur Pulses: PRESENT: normal dorsalis pedis pul Vascular exam: PRESENT: normal capillary refill GI/Abdominal exam: PRESENT: normal bowel sounds, soft. ABSENT: distended, guarding, mass, organolmegaly, rebound, tenderness Rectal exam: PRESENT: deferred Extremities exam: PRESENT: full ROM. ABSENT: calf tenderness, clubbing, pedal edema Musculoskeletal exam: PRESENT: ambulatory, full ROM Neurological exam: PRESENT: alert, awake, oriented to person, oriented to place , oriented to time, oriented to situation, CN II-XII grossly intact. ABSENT: motor sensory deficit Psychiatric exam: PRESENT: appropriate affect, normal mood. ABSENT: homicidal ideation, suicidal ideation Skin exam: PRESENT: dry, erythema - 3cm x 5 cm area of erythema at left neck that is nonfluctuant, warm, other Results Laboratory Results: 10/22/16 04:40 10/22/16 04:40 10/22/16 10/22/16 04:40 04:40 WBC 8.0 RBC 3.69 L Hgb 11.5 L Hct 32.6 L MCV 88 MCH 31.1 MCHC 35.1 RDW 14.1 H Plt Count 177 Seg Neutrophils % 57.1 Lymphocytes % 32.2 Monocytes % 7.9 Eosinophils % 2.7 Basophils % 0.1 Absolute Neutrophils 4.6 Absolute Lymphocytes 2.6 Absolute Monocytes 0.6 Absolute Eosinophils 0.2 Absolute Basophils 0.0 Sodium 137.9 Potassium 3.1 L Chloride 105 Carbon Dioxide 26 Anion Gap 7 BUN 2 L Creatinine 0.45 L Est GFR ( Amer) > 60 Est GFR (Non-Af Amer) > 60 Glucose 112 H Calcium 8.3 L Magnesium 1.9 10/20/16 23:00 Nasophary ([facility] Only) MRSA Surveillance Culture - Final NO MRSA RECOVERED Impressions: Soft Tissue Neck CT 10/20/16 16:53 IMPRESSION: 1. Inflammatory changes are suggested in the left neck, likely cellulitis with associated left sternocleidomastoid myositis. Worrisome for infection. No radiopaque foreign body. Potential forming abscess along the superficial aspect of the left sternocleidomastoid. At present, this is ill- defined and may not be drainable. Assessment & Plan - Diagnosis (1) Cellulitis of neck Is this a current diagnosis for this admission?: Yes Plan: Improving around the marked area. There is no area of fluctuance palpable. Presently on IV clindamycin and vancomycin due to her MRSA history. (2) History of MRSA infection Is this a current diagnosis for this admission?: Yes Plan: Blood cultures are negative, MRSA swab negative. Will discontinue vancomycin (3) Hypokalemia Is this a current diagnosis for this admission?: Yes Plan: Repleted and monitor. (4) Hepatitis C Qualifiers: Viral hepatitis chronicity: unspecified Hepatic coma status: without hepatic coma Qualified Code(s): B19.20 - Unspecified viral hepatitis C without hepatic coma Is this a current diagnosis for this admission?: Yes Plan: Chronic and stable secondary to IV drug use. (5) Hx of intravenous drug use, in remission Is this a current diagnosis for this admission?: Yes Plan: She denies any use in the last 1 year. (6) Tobacco dependency Is this a current diagnosis for this admission?: Yes Plan: Nicotine transdermal as needed. - Time Time Spent with patient: 25-34 minutes Critical Time spent with patient: 15-24 minutes Medications reviewed and adjusted accordingly: Yes Anticipated discharge: Home with Homehealth
[2016-10-23] MEDS: CLINDAMYCIN 900 MG/D5W RTU 50 ML IV SCH ×2 (05:27→13:45)
[2016-10-23] MEDS: MORPHINE SULFATE 10 MG/ML INJ IV PRN (05:28)
[2016-10-23 05:56] LABS: ANION GAP 7 (5-19); BLOOD UREA NITROGEN 2 mg/dL (7-20); CALCIUM 9.3 mg/dL (8.4-10.2); CARBON DIOXIDE 27 mmol/L (22-30); CHLORIDE 107 mmol/L (98-107); CREATININE RESULT 0.52 mg/dL (0.52-1.25); GLUCOSE 85 mg/dL (75-110); MAGNESIUM 2.1 mg/dL (1.6-2.3); POTASSIUM 3.9 mmol/L (3.6-5.0); SODIUM 141.2 mmol/L (137-145)
[2016-10-23] MEDS: DOCUSATE SODIUM 100 MG CAPSULE PO SCH (10:37)
[2016-10-23] MEDS: ENOXAPARIN SODIUM INJ 40 MG/0.4 ML DISP.SYRIN SUBCUT SCH (10:38)
[2016-10-23 12:17] VITALS: BP 136/95
--- NOTE | 2016-10-23 14:00 | PDOC PROGRESS REPORT ---
Subjective Progress Note for:: 10/23/16 Physical Exam Vital Signs: Temp Pulse Resp BP Pulse Ox 98.7 F 93 20 136/95 H 100 10/23/16 12:47 10/23/16 12:47 10/23/16 12:47 10/23/16 12:47 10/23/16 12:47 Intake & Output 10/22/16 10/23/16 10/24/16 06:59 06:59 06:59 Intake Total 4030 2735 Output Total 500 Balance 3530 2735 Weight 108 kg 107.6 kg Neck exam: PRESENT: other - Left neck induration is persistent but nontender with no increased warmth.Is improving gradually. Results Laboratory Results: 10/22/16 04:40 10/23/16 04:22 10/23/16 04:22 Sodium 141.2 Potassium 3.9 Chloride 107 Carbon Dioxide 27 Anion Gap 7 BUN 2 L Creatinine 0.52 Est GFR ( Amer) > 60 Est GFR (Non-Af Amer) > 60 Glucose 85 Calcium 9.3 Magnesium 2.1 Impressions: Soft Tissue Neck CT 10/20/16 16:53 IMPRESSION: 1. Inflammatory changes are suggested in the left neck, likely cellulitis with associated left sternocleidomastoid myositis. Worrisome for infection. No radiopaque foreign body. Potential forming abscess along the superficial aspect of the left sternocleidomastoid. At present, this is ill- defined and may not be drainable. Assessment & Plan - Plan Summary Plan Summary: Patient is being discharged on clindamycin, and will be followed as an outpatient
--- NOTE | 2016-10-23 17:30 | PDOC DISCHARGE SUMMARY ---
General - Admit/Disc Date/PCP Admission Date/Primary Care Provider: 10/20/16 21:35 Discharge Date: 10/23/16 - Discharge Diagnosis (1) Cellulitis of neck Is this a current diagnosis for this admission?: Yes (2) Hypokalemia Is this a current diagnosis for this admission?: Yes (3) Hepatitis C Is this a current diagnosis for this admission?: Yes (4) Hx of intravenous drug use, in remission Is this a current diagnosis for this admission?: Yes (5) Tobacco dependency Is this a current diagnosis for this admission?: Yes (6) Morbid obesity Is this a current diagnosis for this admission?: Yes (7) Benzodiazepine abuse Is this a current diagnosis for this admission?: Yes (8) Opiate abuse, continuous Is this a current diagnosis for this admission?: Yes - Additional Information Resuscitation Status: Full Code Discharge Diet: Regular Discharge Activity: Activity As Tolerated Home Medications: Clindamycin HCl 450 mg PO Q6H #60 capsule 10/23/16 Tramadol HCl [Ultram 50 mg Tablet] 50 mg PO Q4HP PRN #18 tablet 10/23/16 History of Present Illness History of Present Illness: Please see H&P for full HPI Hospital Course Hospital Course: Patient presented with a four-day swelling and induration of her left lateral neck. Patient reports that this started as a small bump under her skin and subsequently began to grow. Upon presentation to the emergency department patient had significant neck swelling and CT of the neck soft tissues was performed. This revealed an significant area of cellulitis with an ill-defined area not amenable to drainage. Patient was admitted and started on vancomycin and clindamycin and was seen by surgery. Surgery followed along this case. Patient continued to greatly improve and was transitioned to clindamycin alone. Patient continued to improve while tapering her antibiotics and her cultures remain negative at 72 hours. Patient reported she is feeling well and ready for discharge. She reported she was feeling significantly improved. Patient admits that benzodiazepines and opiates present in her urine drug screen on admission did not belong to her. She is advised to seek help for this condition. Patient is discharged in stable condition. She is advised to follow -up for any worsening of this particularly any breathing problems. Physical Exam Vital Signs: Temp Pulse Resp BP Pulse Ox 98.7 F 93 20 136/95 H 100 10/23/16 12:47 10/23/16 12:47 10/23/16 12:47 10/23/16 12:47 10/23/16 12:47 Intake & Output 10/22/16 10/23/16 10/24/16 06:59 06:59 06:59 Intake Total 4030 2735 Output Total 500 Balance 3530 2735 Weight 108 kg 107.6 kg Exam: General: Awake alert and oriented x3, no acute respiratory distress HEENT: AT/NC, PERRL, EOMI, oropharynx is moist, pink, no scleral icterus, no conjunctival injection Neck: left lateral neck swelling approximately 3cm of induration with minimal erythema, significantly regressed from previous outline Chest: Clear to auscultation bilaterally, no wheezes rhonchi or rales CV: Regular rate and rhythm, normal S1 and S2, no murmur, rub, or gallop Abdomen: Soft, nontender to palpation, nondistended, active bowel sounds; no rebound, rigidity, or guarding Extremities: No cyanosis, clubbing or edema Neuro: Cranial nerves II through XII are grossly intact without focal deficits; awake alert and oriented x3 Psych: Normal mood and affect Results Laboratory Results: 10/22/16 04:40 10/23/16 04:22 10/23/16 04:22 Sodium 141.2 Potassium 3.9 Chloride 107 Carbon Dioxide 27 Anion Gap 7 BUN 2 L Creatinine 0.52 Est GFR ( Amer) > 60 Est GFR (Non-Af Amer) > 60 Glucose 85 Calcium 9.3 Magnesium 2.1 Impressions: Soft Tissue Neck CT 10/20/16 16:53 IMPRESSION: 1. Inflammatory changes are suggested in the left neck, likely cellulitis with associated left sternocleidomastoid myositis. Worrisome for infection. No radiopaque foreign body. Potential forming abscess along the superficial aspect of the left sternocleidomastoid. At present, this is ill- defined and may not be drainable. Qualifiers PATEINT BEING DISCHARGED WITH ANY OF THE FOLLOWING DIAGNOSIS?: No Plan Time Spent: Less than 30 Minutes
== END 2016-10-23 15:30 | disposition home or self-care (01) | DRG 603 ==
LOC: ER 16:10 → EH 19:31 → UNDOADMIN 19:31 → EH 21:05 → 5 21:05 → EH 21:35 → 5 21:35
PROVIDERS: ADMIT Family Medicine; ATTEND Family Medicine
PROC: BH4CZZZ Ultrasonography of Head and Neck (ICD-10-PCS; principal; 2016-10-20)
DX: L03.221 Cellulitis of neck (principal); Z68.41 Body mass index [BMI] 40.0-44.9, adult; M60.88 Other myositis, other site; M54.2 Cervicalgia; E87.6 Hypokalemia; I10 Essential (primary) hypertension; F41.8 Other specified anxiety disorders; B19.20 Unspecified viral hepatitis C without hepatic coma; E66.01 Morbid (severe) obesity due to excess calories; F17.210 Nicotine dependence, cigarettes, uncomplicated; Z86.14 Personal history of Methicillin resistant Staphylococcus aureus infection
CPT/HCPCS: 36415; 70491; 80048; 80053; 80202; 80307; 83735; 84703; 85025; 87040; 96374; 99285; J0690; J1650; J2270; J3370; J3480; J3490; J7030; J7060

== ENCOUNTER 2017-01-13 23:41 | Emergency (ER) | payer SELFPAY ==
--- NOTE | 2017-01-13 23:56 | ER Document Report ---
ED General - General Stated Complaint: POSSIBLE OVERDOSE Time Seen by Provider: 01/13/17 23:52 Notes: Patient is a 27-year-old female presents with complaint of overdose. She says that she remembers she was cooking and then her mom told her lay down. Currently but then became apneic and was blue with pinpoint pupils. Paramedics were called give her 2 mg of Narcan and she woke up. Patient initially denied taking any excessive medications but now admits that she does have a problem with opiates. She says that she took other sedating medications. She says she has been in rehab before. She says she just got rehab. She said that she was having some pain throughout her body and therefore she drinks some alcohol, took Xanax, took Valium, and took [place]. She says she is not depressed. She denies suicidal. She says she now feels well except for having some soreness throughout her muscles. She says she does not want help with rehab again. TRAVEL OUTSIDE OF THE [place] IN LAST 30 DAYS: No - Related Data Allergies/Adverse Reactions: No Known Allergies Allergy (Verified 10/20/16 16:13) Past Medical History - Social History Smoking Status: Current Some Day Smoker Frequency of alcohol use: Occasional Drug Abuse: Prescription drugs Family History: Arthritis, CAD, CVA, DM, Hyperlipidemia, Hypertension, Malignancy, Thyroid Disfunction - Past Medical History Cardiac Medical History: Denies: Hx Atrial Fibrillation, Hx Congestive Heart Failure, Hx Coronary Artery Disease, Hx DVT, Hx Heart Attack, Hx Hypercholesterolemia, Hx Hypertension, Hx Pulmonary Embolism Pulmonary Medical History: Denies: Hx Asthma, Hx COPD, Hx Sleep Apnea Neurological Medical History: Denies: Hx Seizures Endocrine Medical History: Denies: Hx Diabetes Mellitus Type 1, Hx Diabetes Mellitus Type 2, Hx Hyperthyroidism, Hx Hypothyroidism Renal/ Medical History: Reports: Hx Ovarian Cysts. Denies: Hx Peritoneal Dialysis GI Medical History: Reports: Hx Endoscopy. Denies: Hx Cirrhosis, Hx Gastroesophageal Reflux Disease Musculoskeltal Medical History: Denies Hx Arthritis, Reports Hx Musculoskeletal Trauma Psychiatric Medical History: Reports: Hx Anxiety, Hx Depression Traumatic Medical History: Reports: Hx Fractures - Elbow Infectious Medical History: Reports: Hx MRSA. Denies: Hx C-Diff Past Surgical History: Reports: Hx Adenoidectomy - Fourth grade, Hx Oral Surgery - [place] teeth, Hx Tonsillectomy - Fourth grade, Other - [place] teeth extraction, 2006 - Immunizations Hx Diphtheria, Pertussis, Tetanus Vaccination: No Review of Systems - Review of Systems Notes: My Normal Review Basic REVIEW OF SYSTEMS: CONSTITUTIONAL : Denies fever, chills, or sweats. Denies recent illness. EENT: Small amount of blood in nares from where her nasal airway was attempted by paramedics. CARDIOVASCULAR: Denies chest pain. RESPIRATORY: Clear that was resolved with Narcan. MUSCULOSKELETAL: Denies neck or back pain or joint pain or swelling. SKIN: Denies rash or skin lesions. NEUROLOGICAL: Denies altered mental status or loss of consciousness. Denies headache. Denies weakness or paralysis or loss of use of either side. Denies problems with gait or speech. Denies sensory or motor loss. ALL OTHER SYSTEMS REVIEWED AND NEGATIVE. Physical Exam - Vital signs Vitals: Temp Pulse Resp BP Pulse Ox 97.6 F 78 18 141/87 H 99 01/14/17 00:38 01/14/17 00:38 01/14/17 00:38 01/14/17 00:38 01/14/17 00:38 - Notes Notes: General Appearance: Well nourished, alert, cooperative, no acute distress, mild obvious discomfort. Vitals: reviewed, See vital signs table. Head: no swelling or tenderness to the head Eyes: PERRL, EOMI, Conjuctiva clear Mouth: No decreasd moisture Nares: Small amount of blood in nares. No active bleeding at this time. Throat: No tonsillar inflammation, No airway obstruction, No lymphadenopathy Neck: Supple, no neck tenderness Lungs: No wheezing, No rales, No rhonci, No accessory muscle use, good air exchange bilaterally. Heart: Normal rate, Regular rythm, No murmur, no rub Abdomen: Normal BS, soft, No rigidity, No abdominal tenderness, No guarding, no rebound, no abdominal masses, no organomegaly Extremities: strength 5/5 in all extremities, good pulses in all extremities, no swelling or tenderness in the extremities, no edema. Skin: warm, dry, appropriate color, no rash Neuro: speech clear, oriented x 3, normal affect, responds appropriately to questions. Patient is able to walk on her own. Cranial nerves II through XII are intact. She does answer questions appropriately. Course - Re-evaluation Re-evalutation: 01/14/17 06:42 Patient is feeling much improved. Patient looks well. She is awake alert and acting appropriately. She is upset that her mom did not come. I gave her phone to try to call her mom. She has now been monitored for several hours and has had no hypoxemia and is wide awake and appropriate sober. Patient said from beginning that she does not want to go back to rehab and she wants no help with rehab. She said she was recently released from rehab and was not helpful. Patient will be discharged as she request. Dictation of this chart was performed using voice recognition software; therefore, there may be some unintended grammatical errors. - Vital Signs Vital signs: Temp Pulse Resp BP Pulse Ox 97.6 F 78 18 141/87 H 99 01/14/17 00:38 01/14/17 00:38 01/14/17 00:38 01/14/17 00:38 01/14/17 00:38 Discharge - Discharge Clinical Impression: Opiate abuse, continuous Opiate overdose Qualifiers: Encounter type: initial encounter Injury intent: accidental or unintentional Qualified Code(s): T40.601A - Poisoning by unspecified narcotics, accidental ( unintentional), initial encounter Condition: Good Disposition: HOME, SELF-CARE Additional Instructions: Please do not take medications that are not prescribed for you. Please return to the ER immediately if you develop fevers, difficulty breathing, vomiting, or feel unwell. Please follow up with your doctor for reevlauation in 2-3 days. I do not want you to use opiates at all anymore; however, there is always a possibility you could relapse and overdose again. I have therefore written a prescription for Narcan. Please use this medication if you are feeling sleepy after taking an opiate medication. Please return to the ER immediately if you have to use the Narcan. Prescriptions: Naloxone HCl [Narcan] 4 mg NS JEOVANY #1 spray
[2017-01-14 07:47] VITALS: BP 160/89
== END 2017-01-14 08:20 | disposition home or self-care (01) ==
LOC: ER 23:41
DX: T40.601A Poisoning by unspecified narcotics, accidental (unintentional), initial encounter (principal); F17.200 Nicotine dependence, unspecified, uncomplicated; X58.XXXA Exposure to other specified factors, initial encounter; Y92.009 Unspecified place in unspecified non-institutional (private) residence as the place of occurrence of the external cause; Z86.14 Personal history of Methicillin resistant Staphylococcus aureus infection
CPT/HCPCS: 81025; 99284

== ENCOUNTER 2018-03-24 15:53 | Outpatient (CLI) | payer MEDICAID ==
--- NOTE | 2018-03-24 18:15 | RADIOLOGY REPORT (SQ) ---
EXAM DESCRIPTION: U/S PROFILE W/O STRESS COMPLETED DATE/TIME: 03/24/2018 5:59 pm REASON FOR STUDY: IUP @ 36w6d with nonreactive nst COMPARISON: None. TECHNIQUE: Limited bergman-scale realtime and static images of the fetus to measure specified parameter s. LIMITATIONS: None. FINDINGS: HEART RATE: 149 beats per minute. [place]: Adequate cm. BREATHING MOVEMENT: 2 points. MOVEMENT: 2 points. POSTURE AND TONE: 2 points. QUALITATIVE [place]: 2 points. OTHER: No other significant finding. IMPRESSION: BIOPHYSICAL PROFILE: 10/02. Trimester of : Third - 28 weeks to delivery COMMENT: BREATHING MOVEMENTS: 2 POINTS: PRESENT 0 POINTS: ABSENT MOTION: 2 POINTS: PRESENT 0 POINTS: ABSENT TONE: 2 POINTS: PRESENT 0 POINTS: ABSENT AMNIOTIC FLUID VOLUME: 2 POINTS: LARGEST POCKET GREATER THAN 2 CM DEPTH. 0 POINTS: NO POCKET OF 2 CM. TECHNICAL DOCUMENTATION: JOB ID: [id number] [employer] All Rights Reserved Reading location - IP/workstation name: [email or web address]
--- NOTE | 2018-03-24 18:36 | Non Stress Test Report ---
Non Stress Test Datetime Report Generated by CPN: 03/24/2018 18:35 DEMOGRAPHIC EGA NST: 36.6 INDICATION Indication for Study: Substance Abuse; Ordered by Provider VITAL SIGNS Temperature - NST: 98.5 Pulse - NST: 108 RESP - NST: 18 NBPSYS NST: 129 NBPDIA NST: 78 MONITORING Monitor Explained: Monitor Explained; Test Explained; Patient Verbalized Understanding Time on Monitor: 03/24/2018 16:05 Time off Monitor: 03/24/2018 17:13 NST Duration: 68 NST INTERVENTIONS NST Interventions: PO Hydration; Reposition Patient Physician Notified NST: DR GRIMES BABY A: [id number] BABY A Movement : Present Contraction Frequency : NONE FHR Baseline : 135 Accelerations : 10X10 Decelerations : None Variability : Moderate 6-25bpm NST Review: Does Not Meet Criteria for Reactive NST NST Review and Verified By : Alfredito Charly, RN NST Results: Non-Reactive NST COMMENTS NST Comments: BPP DONE- 8/8 NST REPORT Report Trigger: Send Report
== END 2018-03-24 18:24 | disposition home or self-care (01) ==
LOC: LC 15:53
PROVIDERS: ATTEND Obstetrics & Gynecology
PROC: 4A1HXCZ Monitoring of Products of Conception, Cardiac Rate, External Approach (ICD-10-PCS; principal; 2018-03-24)
DX: O99.323 Drug use complicating pregnancy, third trimester (principal); F19.10 Other psychoactive substance abuse, uncomplicated; Z3A.36 36 weeks gestation of pregnancy
CPT/HCPCS: 76819

== ENCOUNTER 2018-03-27 14:38 | Outpatient (CLI) | payer MEDICAID ==
--- NOTE | 2018-03-27 17:18 | RADIOLOGY REPORT (SQ) ---
EXAM DESCRIPTION: U/S PROFILE W/O STRESS COMPLETED DATE/TIME: 03/27/2018 5:07 pm REASON FOR STUDY: nonreactive NST COMPARISON: 03/24/2018. TECHNIQUE: Limited bergman-scale realtime and static images of the fetus to measure specified parameter s. LIMITATIONS: None. FINDINGS: HEART RATE: 130-153 beats per minute. [place]: 13.5 cm. BREATHING MOVEMENT: 2 points. MOVEMENT: 2 points. POSTURE AND TONE: 2 points. QUALITATIVE [place]: 2 points. OTHER: No other significant finding. IMPRESSION: BIOPHYSICAL PROFILE: 10/02. Trimester of : Third - 28 weeks to delivery COMMENT: BREATHING MOVEMENTS: 2 POINTS: PRESENT 0 POINTS: ABSENT MOTION: 2 POINTS: PRESENT 0 POINTS: ABSENT TONE: 2 POINTS: PRESENT 0 POINTS: ABSENT AMNIOTIC FLUID VOLUME: 2 POINTS: LARGEST POCKET GREATER THAN 2 CM DEPTH. 0 POINTS: NO POCKET OF 2 CM. TECHNICAL DOCUMENTATION: JOB ID: [id number] [employer]- All Rights Reserved Reading location - IP/workstation name: [email or web address]
== END 2018-03-27 17:03 | disposition home or self-care (01) ==
LOC: LC 14:38
PROVIDERS: ATTEND Obstetrics & Gynecology Gynecology
PROC: 4A1HXCZ Monitoring of Products of Conception, Cardiac Rate, External Approach (ICD-10-PCS; principal; 2018-03-27)
DX: Z36.89 Encounter for other specified antenatal screening (principal); Z3A.37 37 weeks gestation of pregnancy
CPT/HCPCS: 76819

== ENCOUNTER 2018-03-31 16:03 | Inpatient (IN) | payer MEDICAID ==
[2018-03-31 17:04] LABS: ALANINE AMINOTRANSFERASE 23 U/L (9-52); ALBUMIN 3.2 g/dL (3.5-5.0); ALKALINE PHOSPHATASE 120 U/L (38-126); ANION GAP 9 (5-19); ASPARTATE AMINO TRANSFERASE 20 U/L (14-36); BILIRUBIN,DIRECT 0.2 mg/dL (0.0-0.4); BILIRUBIN,TOTAL 0.3 mg/dL (0.2-1.3); BLOOD UREA NITROGEN 5 mg/dL (7-20); CALCIUM 8.7 mg/dL (8.4-10.2); CARBON DIOXIDE 24 mmol/L (22-30); CHLORIDE 105 mmol/L (98-107); GLUCOSE 93 mg/dL (75-110); POTASSIUM 3.7 mmol/L (3.6-5.0); SODIUM 137.5 mmol/L (137-145); TOTAL PROTEIN 5.6 g/dL (6.3-8.2)
--- NOTE | 2018-03-31 18:52 | RADIOLOGY REPORT (SQ) ---
EXAM DESCRIPTION: U/S PROFILE W/O STRESS COMPLETED DATE/TIME: 03/31/2018 6:33 pm REASON FOR STUDY: NR NST, pt needs BPP COMPARISON: 03/27/2018. TECHNIQUE: Limited bergman-scale realtime and static images of the fetus to measure specified parameter s. LIMITATIONS: None. FINDINGS: HEART RATE: 137-144 beats per minute. [place]: 13.4 cm. BREATHING MOVEMENT: 0 points. MOVEMENT: 2 points. POSTURE AND TONE: 2 points. QUALITATIVE [place]: 2 points. OTHER: No other significant finding. IMPRESSION: BIOPHYSICAL PROFILE: 08/02. Trimester of : Third - 28 weeks to delivery COMMENT: BREATHING MOVEMENTS: 2 POINTS: PRESENT 0 POINTS: ABSENT MOTION: 2 POINTS: PRESENT 0 POINTS: ABSENT TONE: 2 POINTS: PRESENT 0 POINTS: ABSENT AMNIOTIC FLUID VOLUME: 2 POINTS: LARGEST POCKET GREATER THAN 2 CM DEPTH. 0 POINTS: NO POCKET OF 2 CM. TECHNICAL DOCUMENTATION: JOB ID: [id number] [employer]- All Rights Reserved Reading location - IP/workstation name: [email or web address]
--- NOTE | 2018-03-31 19:30 | Admission Physical ---
Datetime Report Generated by CPN: 03/31/2018 19:29 CURRENT ADMISSION Chief Complaint: Sent from OB Office for Evaluation and Treatment - Please Specify; Other Chief Complaint Other: Here for repeat NST. Has not been reactive. BPP is 08/02 (-2 for breathing) Indication for Induction: Not Applicable Admit Impression : Term, Intrauterine ; Observation/Evaluation Admit Plan: Admit to Unit; Observation/Evaluation Admit Plan- Other: plan to do continuous Monitoring and repeat BPP in AM. ALLERGIES Medication Allergies: No Medication Allergies: No Known Allergies (03/31/2018) Latex: No Latex Allergies OBSTETRICAL HISTORY EDC: 04/15/2018 00:00 : 3 Para: 2 Term: 2 : 0 SAB: 0 IAB: 0 Ectopic: 0 Livin Cesareans: 0 VBACs: 0 Multiple Births: 0 PHYSICAL EXAM General: Normal HEENT: Normal Neurologic: Normal Thyroid: Normal Heart: Normal Lungs: Normal Breast: Normal Back: Normal Abdomen: Normal Genitourinary Exam: Normal Extremities: Normal DTRs: Normal Pelvic Type: Adequate Vital Signs: Reviewed; Within Normal Limits FETUS A EGA: 37.6 Monitoring: External US FHR- Baseline: 140 Variability: Minimal - Undetectable to <=5bpm Accelerations: 10X10 Decelerations: None FHR Category: Category II Estimated Weight (gm): 3100 Presentation: Vertex Admit Comment: d/w pt and her mother regarding need for monitoring and repeat BPP for assurance of well being. possible delivery was also discussed if there is no significant improvement in monitoring/BPP. INFORMED CONSENT Signature: with User ID: [email or web address]
[2018-03-31 20:04] LABS: ABSOLUTE EOSINOPHILS # (AUTO) 0.1 10^3/uL (0.0-0.6); ABSOLUTE MONOCYTES (AUTO) 0.9 10^3/uL (0.1-1.4); ABSOLUTE NEUT (AUTO) 8.4 10^3/uL (1.7-8.2); BASOPHILS % (AUTO) 0.2 % (0-2); HEMATOCRIT 37.4 % (36.0-47.0); LYMPHOCYTES % (AUTO) 24.3 % (13-45); MEAN CORPUSCULAR HEMOGLOBIN 29.5 pg (27.0-33.4); MEAN CORPUSCULAR HGB CONC 34.6 g/dL (32.0-36.0); MEAN CORPUSCULAR VOLUME 85 fl (80-97); MONOCYTES % (AUTO) 6.9 % (3-13); PLATELET COUNT 250 10^3/uL (150-450); RED BLOOD COUNT 4.39 10^6/uL (3.72-5.28); RED CELL DISTRIBUTION WIDTH 13.4 % (11.5-14.0); SEGMENTED NEUTROPHILS % (AUTO) 67.6 % (42-78); TOTAL CELLS COUNTED % (AUTO) 100 %; WHITE BLOOD COUNT 12.4 10^3/uL (4.0-10.5)
[2018-03-31 20:13] LABS: APPEARANCE,URINE SLIGHTLY-CLOUDY; BILIRUBIN,URINE NEGATIVE (NEGATIVE); COLOR,URINE YELLOW; GLUCOSE, URINE NEGATIVE (NEGATIVE); KETONES,URINE NEGATIVE (NEGATIVE); LEUKOCYTE ESTERASE,URINE NEGATIVE (NEGATIVE); NITRITE,URINE NEGATIVE (NEGATIVE); PROTEIN,URINE NEGATIVE (NEGATIVE); URINE SPECIFIC GRAVITY 1.005
[2018-03-31 20:32] LABS: URINE AMPHETAMINES SCREEN NEGATIVE; URINE BARBITURATES SCREEN NEGATIVE; URINE BENZODIAZEPINES SCREEN NEGATIVE; URINE COCAINE SCREEN NEGATIVE; URINE MARIJUANA (THC) SCREEN NEGATIVE; URINE METHADONE SCREEN NEGATIVE; URINE PHENCYCLIDINE SCREEN NEGATIVE
[2018-03-31] MEDS ORDERED: RINGERS SOLUTION,LACTATED 1,000 ML IV PRN (21:46)
[2018-03-31] MEDS ORDERED: RINGERS SOLUTION,LACTATED 1,000 ML IV ONE (21:46)
[2018-04-01] MEDS ORDERED: DINOPROSTONE 10 MG VAGINAL INSERT.SR ONE (00:16)
--- NOTE | 2018-04-01 10:09 | L&D Progress Notes ---
PROGRESS NOTES Datetime Report Generated by CPN: 04/01/2018 10:09 PROGRESS NOTE Impression: Non-reassuring Heart Rate Impression Other: BPP 6/8 Plan: Induction; Cervical Ripening Informed Consent Obtained: Vaginal Delivery; Induction of Labor Vital Signs : Reviewed; Within Normal Limits Comment: reviewed BPP yesterday and today with MFM. Reviewed patient history. Per MF recommend delivery at 38wks with Non reactive NST and BPP 6/8 x 2. Pt did not have subutex this am so subutex would not be interfering with todays BPP. will check cervix and begin IOL. LAST VAGINAL EXAM-NURSING Contractions: Abdomen soft upon palpation; pt denies feeling ctx's Contractions: Abdomen soft upon palpation; pt denies feeling ctx's Contractions: Abdomen soft upon palpation; pt denies feeling ctx's Contractions: Abdomen soft upon palpation; pt denies feeling ctx's Contractions: Abdomen soft upon palpation; pt denies feeling ctx's Contractions: Abdomen soft upon palpation; pt denies feeling ctx's Contractions: Abdomen soft upon palpation; pt denies feeling ctx's Contractions: Abdomen soft upon palpation; pt denies feeling ctx's Contractions: Abdomen soft upon palpation; pt denies feeling ctx's Contractions: Abdomen soft upon palpation; pt denies feeling ctx's Contractions: Abdomen soft upon palpation; pt denies feeling ctx's Contractions: Abdomen soft upon palpation; pt denies feeling ctx's Contractions: Abdomen soft upon palpation; pt denies feeling ctx's FETUS A : 37.6 Estimated Weight (gm): 3100 Presentation: Vertex SIGNATURE SIGNATURE: [id number];14,[id number];[id number] SIGNATURE: [id number];[id number] SIGNATURE: [id number] Signature: with User ID: [email or web address]
--- NOTE | 2018-04-01 10:35 | L&D Progress Notes ---
PROGRESS NOTES Datetime Report Generated by CPN: 04/01/2018 10:35 PROGRESS NOTE Impression: Non-reassuring Heart Rate Procedures: Sterile Vag Exam Plan: Induction; Cervical Ripening Informed Consent Obtained: Vaginal Delivery; Induction of Labor; Risks, Benefits and Alternatives Discussed Comment: IOL. Known Hep C - viral load and LFTs ordered. Vertex on US today with BPP 6/8 again. D/w Dr. Mcfarland regarding plan of care and agreed for recommendations of admission. Will begin cooks catheter and pitocin for IOL. R/B/A reviewed. Anticipate VAGINAL EXAM Dilitation: 1.5 Effacement: 50 Station: -2 MEMBRANES Membranes: Intact FETUS A FHR - Baseline: 125 Monitoring: External US Variability: Moderate 6-25bpm Accelerations: 10X10 Decelerations: None FHR Category: Category II FETUS C SIGNATURE: [id number];[id number];[id number] Signature: with User ID: [email or web address]
[2018-04-01] MEDS ORDERED: OXYTOCIN/NORMAL SALINE 20 UNIT/1,000 ML RTUINJ IV PRN ×3 (10:46→22:37)
[2018-04-01] MEDS ORDERED: PENICILLIN G POTASSIUM 5,000,000 UNIT in DEXTROSE 5%-WATER 100 ML IV ONE (10:52)
[2018-04-01] MEDS ORDERED: OXYTOCIN/NORMAL SALINE 20 UNIT/1,000 ML RTUINJ ONE ×2 (10:54→22:42)
[2018-04-01] MEDS ORDERED: LIDOCAINE 1% INJ-PF (10 MG/ML) 30 ML SDV ONE (10:54)
[2018-04-01] MEDS ORDERED: MISOPROSTOL 0.2 MG TABLET ONE (10:54)
[2018-04-01] MEDS ORDERED: PENICILLIN G-K 5 MILLION UNIT VIAL ONE ×3 (10:55→19:16)
--- NOTE | 2018-04-01 11:53 | RADIOLOGY REPORT (SQ) ---
EXAM DESCRIPTION: U/S PROFILE W/O STRESS COMPLETED DATE/TIME: 04/01/2018 9:23 am REASON FOR STUDY: BPP @ 38 WEEKS- REPEAT FROM 03/31/2018 COMPARISON: None. TECHNIQUE: Limited bergman-scale realtime and static images of the fetus to measure specified parameter s. LIMITATIONS: None. FINDINGS: HEART RATE: 133 beats per minute. [place]: 10.3 cm. BREATHING MOVEMENT: 2 points. MOVEMENT: 2 points. POSTURE AND TONE: 0 points. QUALITATIVE [place]: 2 points. OTHER: Vertex presentation. IMPRESSION: BIOPHYSICAL PROFILE: 08/02. Trimester of : Third - 28 weeks to delivery COMMENT: BREATHING MOVEMENTS: 2 POINTS: PRESENT 0 POINTS: ABSENT MOTION: 2 POINTS: PRESENT 0 POINTS: ABSENT TONE: 2 POINTS: PRESENT 0 POINTS: ABSENT AMNIOTIC FLUID VOLUME: 2 POINTS: LARGEST POCKET GREATER THAN 2 CM DEPTH. 0 POINTS: NO POCKET OF 2 CM. TECHNICAL DOCUMENTATION: JOB ID: [id number] [email or web address]- All Rights Reserved Reading location - IP/workstation name: [email or web address]
[2018-04-01 12:05] LABS: ABSOLUTE EOSINOPHILS # (AUTO) 0.1 10^3/uL (0.0-0.6); ABSOLUTE LYMPHOCYTES (AUTO) 2.4 10^3/uL (0.5-4.7); ABSOLUTE MONOCYTES (AUTO) 0.8 10^3/uL (0.1-1.4); ABSOLUTE NEUT (AUTO) 8.1 10^3/uL (1.7-8.2); BASOPHILS % (AUTO) 0.2 % (0-2); EOSINOPHILS % (AUTO) 0.9 % (0-6); HEMATOCRIT 35.7 % (36.0-47.0); HEMOGLOBIN 12.3 g/dL (12.0-15.5); LYMPHOCYTES % (AUTO) 20.7 % (13-45); MEAN CORPUSCULAR HEMOGLOBIN 29.3 pg (27.0-33.4); MEAN CORPUSCULAR HGB CONC 34.6 g/dL (32.0-36.0); MEAN CORPUSCULAR VOLUME 85 fl (80-97); MONOCYTES % (AUTO) 7.1 % (3-13); PLATELET COUNT 215 10^3/uL (150-450); RED BLOOD COUNT 4.21 10^6/uL (3.72-5.28); RED CELL DISTRIBUTION WIDTH 13.5 % (11.5-14.0); SEGMENTED NEUTROPHILS % (AUTO) 71.1 % (42-78); TOTAL CELLS COUNTED % (AUTO) 100 %; WHITE BLOOD COUNT 11.4 10^3/uL (4.0-10.5)
[2018-04-01 12:28] LABS: ALANINE AMINOTRANSFERASE 30 U/L (9-52); ALBUMIN 3.2 g/dL (3.5-5.0); ALKALINE PHOSPHATASE 129 U/L (38-126); ANION GAP 6 (5-19); ASPARTATE AMINO TRANSFERASE 24 U/L (14-36); BILIRUBIN,DIRECT 0.1 mg/dL (0.0-0.4); BILIRUBIN,TOTAL 0.3 mg/dL (0.2-1.3); BLOOD UREA NITROGEN 4 mg/dL (7-20); CALCIUM 9.1 mg/dL (8.4-10.2); CARBON DIOXIDE 23 mmol/L (22-30); CHLORIDE 109 mmol/L (98-107); GLUCOSE 85 mg/dL (75-110); POTASSIUM 3.9 mmol/L (3.6-5.0); TOTAL PROTEIN 5.8 g/dL (6.3-8.2)
[2018-04-01] MEDS: PENICILLIN G POTASSIUM 2,500,000 UNIT in DEXTROSE 5%-WATER 50 ML IV SCH ×2 (15:18→19:23)
--- NOTE | 2018-04-01 19:48 | L&D Progress Notes ---
PROGRESS NOTES Datetime Report Generated by CPN: 04/01/2018 19:48 PROGRESS NOTE Impression: Normal Progression of Labor; Reassuring Heart Rate; Rupture of Membranes Procedures: Artificial ROM; Sterile Vag Exam Plan: Continue Present Management; Induction Informed Consent Obtained: Vaginal Delivery; Induction of Labor; Risks, Benefits and Alternatives Discussed Vital Signs : Reviewed Comment: IOL due to BPP 6/8. cvx 3-4/50/-2. AROM with clear fluid. Anticipate . Continue with pitocin IOL VAGINAL EXAM Dilatation: 4 Effacement: 50 Station: -2 Contractions: q 2-4 Dilitation: 3.5 Dilitation: 2.5 Effacement: 50 Effacement: 50 Station: -2 Station: -2 MEMBRANES Membranes: Intact FETUS A FHR - Baseline: 125 Monitoring: External US Variability: Moderate 6-25bpm FHR Category: Category II FETUS C SIGNATURE: [id number];[id number];[id number] Signature: with User ID: [email or web address]
[2018-04-01] MEDS ORDERED: MEASLES,MUMPS&RUBELLA VACC/PF 0.5 ML VIAL SUBCUT PRN (22:37)
[2018-04-01] MEDS ORDERED: DIBUCAINE 1% OINTMENT 28 GM TP PRN (22:37)
[2018-04-01] MEDS ORDERED: PSEUDOEPHEDRINE HCL 30 MG TABLET PO PRN (22:37)
[2018-04-01] MEDS ORDERED: PROMETHAZINE HCL INJ 25 MG/1 ML VIAL IV PRN (22:37)
[2018-04-01] MEDS ORDERED: DIPHENHYDRAMINE HCL 25 MG CAPSULE PO PRN (22:37)
[2018-04-01] MEDS ORDERED: ZOLPIDEM TARTRATE 5 MG TABLET PO PRN (22:37)
[2018-04-01] MEDS ORDERED: PROMETHAZINE HCL 25 MG TABLET PO PRN (22:37)
[2018-04-01] MEDS ORDERED: BENZOCAINE/MENTHOL AEROSOL SPRAY 56 ML TOP PRN (22:37)
[2018-04-01] MEDS ORDERED: DIPH/PERTUSS(ACELL)/TETANUS VAC/PF 0.5 ML SYR (>=10YO) IM PRN (22:37)
[2018-04-01] MEDS ORDERED: PROMETHAZINE HCL 25 MG SUPP.RECT PR PRN (22:37)
[2018-04-01] MEDS ORDERED: GLYCERIN/WITCH HAZEL LEAF 1 EACH MED..PAD TP PRN (22:37)
[2018-04-01] MEDS ORDERED: ACETAMINOPHEN WITH CODEINE #3 TABLET PO PRN ×2 (22:37)
[2018-04-01] MEDS ORDERED: MAGNESIUM HYDROXIDE SUSP 30 ML UDCUP PO PRN (22:37)
[2018-04-01] MEDS ORDERED: ACETAMINOPHEN 325 MG TABLET PO PRN (22:37)
[2018-04-01] MEDS ORDERED: NA PHOS,M-B/NA PHOS,DI-BA (ADULT) 133 ML ENEMA PR PRN (22:37)
[2018-04-01] MEDS ORDERED: FENTANYL CITRATE INJ/PF 100 MCG/2 ML AMPUL ONE (22:42)
[2018-04-01] MEDS ORDERED: FENTANYL CITRATE INJ/PF 100 MCG/2 ML AMPUL IV ONE (22:42)
--- NOTE | 2018-04-01 23:28 | Delivery Summary ---
Del Sum A-C Datetime Report Generated by CPN: 04/01/2018 23:28 DELIVERY PERSONNEL DELIVERY PERSONNEL: [id number] Delivery Doctor:: Sona Riley MD Labor and Delivery Nurse:: Hyacinth Cabrera RNmanufacturing systems engineer Nurse:: Theresa Mondragon RN Rate Clerk:: Mabel Maki RN Nursery Nurse:: Giselle Claudio RN MATERNAL INFORMATION Delivery Anesthesia: None Medications After Delivery: Pitocin Bolus-Please Comment Meds After Delivery Comment: 1500 mls of Pitocin 20 Units in 1 L NS given Estimated Blood Loss (ml): 50 Maternal Complications: Other Other Maternal Complications: IOL for indications Complication Details: SUBUTEX Provider Comments: VMI delivered in VICENTE presentation with loose nuchal cord easily reduced. Shoulders and body delivered without difficulty. to maternal abdomen for NRP. TRUE KNOT in cord. Placenta delivered intact spontaneously. Periurethral laceration repaired in usual fashion with good hemostasis. FF at U. Mother and baby stable upon provider leaving the room. LABOR SUMMARY EDC: 04/15/2018 00:00 No. Babies in Womb: 1 Attempted: No Labor Anesthesia: None LABOR INFORMATION Reason for Induction: Not Applicable; Indicated by Testing Reason for Induction- Other: BPP 6/8 Onset of Labor: 04/01/2018 21:52 Complete Dilatation: 04/01/2018 22:19 Cervical Ripening Agents: [place] Balloon Oxytocin: Induction Group B Beta Strep: Positive Antibiotics # of Doses: 3 Name of Antibiotic Given: PENICILLIN G Steroids Given: None Reason Steroids Not Administered: Not Applicable MEMBRANES Membranes Rupture Method: Artificial Rupture of Membranes: 04/01/2018 19:41 Length of Rupture (hr): 2.70 Amniotic Fluid Color: Bloody Amniotic Fluid Amount: Small Amniotic Fluid Odor: None STAGES OF LABOR Stage 1 hr: 0 Stage 1 min: 27 Stage 2 hr: 0 Stage 2 min: 4 Stage 3 hr: 0 Stage 3 min: 6 Total Time in Labor hr: 0 Total Time in Labor min: 37 VAGINAL DELIVERY Episiotomy: None Laceration #1: Periurethral Laceration Extension #1: N/A Laceration Repair: Yes Laceration Repair Note: periurethral laceration to the right was repaired with catheter in place. Good hemostasis Sponge Count Correct: Yes Sharps Count Correct: Yes CSECTION DELIVERY Primary Indication: N/A CSection Incidence: N/A Labor: N/A Elective: N/A CSection Incision: N/A BABY A INFORMATION Infant Delivery Date/Time: 04/01/2018 22:23 Method of Delivery: Vaginal Born in Route : No : N/A Forceps: N/A Vacuum Extraction: N/A Shoulder Dystocia : No PRESENTATION/POSITION BABY A Presentation: Cephalic Cephalic Presentation: Vertex Vertex Position: Right Occipital Anterior Breech Presentation: N/A PLACENTA INFORMATION BABY A Placenta Delivery Time : 04/01/2018 22:29 Placenta Method of Delivery: Spontaneous Placenta Status: Delivered SCORES BABY A Heart Rate 1 min: >100 bpm Resp Effort 1 min: Good Cry Reflex Irritability 1 min: Cough or Sneeze or Pulls Away Muscle Tone 1 min: Active Motion Color 1 min: Body [place], Extremities Blue Resuscitation Effort 1 min: Tactile Stimulation SCORE 1 MIN: 9 Heart Rate 5 min: >100 bpm Resp Effort 5 min: Good Cry Reflex Irritability 5 min: Cough or Sneeze or Pulls Away Muscle Tone 5 min: Active Motion Color 5 min: Body [place], Extremities Blue Resuscitation Effort 5 min: Tactile Stimulation SCORE 5 MIN: 9 INFANT INFORMATION BABY A Gestational Age at Delivery: 38.0 Gestational Status: Early Term- 37- 38.6 Weeks Outcome : Liveborn Infant Condition : Stable Sex: Male IDENTIFICATION BABY A Verification Date/Time: 04/01/2018 22:46 ID Band Number: [id number] Mother's Name Verified: Yes RN Verifying Infant: MSanchez Cabrera RN, E. Renélek RN WEIGHT/LENGTH BABY A Infant Birthweight (gm): 2829 Weight (lb): 6 Weight (oz): 4 Length (in): 19.50 Infant Length (cm): 49.53 CORD INFORMATION BABY A No. Cord Vessels: 3 Nuchal Cord : Around Neck x1, Loose Nuchal Cord- Other: true knot True Knot: 1 Cord Blood Taken: N/A Suction: None ASSESSMENT BABY A Complications- Other: True knot Physical Findings at Delivery: Bruising Respirations: Appears Normal Skin to Skin: No Lead Fabricator/ALS Called : No Transferred To: Remains with Mother BABY B INFORMATION : N/A SIGNATURES Signature: with User ID: [email or web address]
[2018-04-02] MEDS: PENICILLIN G POTASSIUM 2,500,000 UNIT in DEXTROSE 5%-WATER 50 ML IV SCH (01:03)
[2018-04-02] MEDS: IBUPROFEN 800 MG TABLET PO SCH ×3 (06:03→21:07)
[2018-04-02 09:24] LABS: HEMOGLOBIN 10.6 g/dL (12.0-15.5); MEAN CORPUSCULAR HEMOGLOBIN 29.2 pg (27.0-33.4); MEAN CORPUSCULAR HGB CONC 34.4 g/dL (32.0-36.0); MEAN CORPUSCULAR VOLUME 85 fl (80-97); PLATELET COUNT 190 10^3/uL (150-450); RED BLOOD COUNT 3.64 10^6/uL (3.72-5.28); RED CELL DISTRIBUTION WIDTH 13.2 % (11.5-14.0); WHITE BLOOD COUNT 12.7 10^3/uL (4.0-10.5)
[2018-04-02] MEDS: FAMOTIDINE 20 MG TABLET PO SCH ×2 (09:44→21:07)
[2018-04-02] MEDS: SENNOSIDES/DOCUSATE 8.6-50 MG 1 EACH TABLET PO SCH (09:44)
[2018-04-02] MEDS: DOCUSATE SODIUM 100 MG CAPSULE PO SCH ×2 (09:44→18:25)
[2018-04-02] MEDS: FERROUS SULFATE 325 MG TABLET PO SCH ×2 (09:44→18:26)
[2018-04-02] MEDS: PRENATAL VITAMIN W DHA CAPSULE PO SCH (09:45)
--- NOTE | 2018-04-02 10:32 | PDOC PROGRESS REPORT ---
Subjective-OB Progress Note for:: 04/02/18 Subjective: 28yo G3 now P3 s/p ppd1. Pt ambulating and voiding without difficulty, reports pain well controlled with medication, no concerns at this time Physical Exam (OB) Vital Signs: Temp Pulse Resp BP Pulse Ox 97.8 F 89 20 112/59 L 97 04/02/18 08:42 04/02/18 08:42 04/02/18 08:42 04/02/18 08:42 04/02/18 08:42 Intake & Output 04/01/18 04/02/18 04/03/18 06:59 06:59 06:59 Intake Total 50 Balance 50 Weight 104.9 kg - General General Appearance: Appears well In distress: None - PIH/Pre-Eclampsia DTR's: 2 + Clonus: Negative Headache: Absent Epigastric Pain: No Visual Changes: No - Episiotomy/Laceration Site Condition: Well Approximated - Lochia Lochia Amount: Small 10-25 ml Lochia Color: Rubra/Red - Abdomen Description: Soft Hernia Present: No Fundal Description: Firm, Midline Fundal Height: u/u - u/2 - Respiratory Respiratory Status: No respiratory distress - Extremities Upper extremity: Normal inspection Lower extremities: Normal inspection - Neurological Cognition: Normal Orientation: AAOx4 Speech: Normal - Psychological Associated symptoms: Normal affect, Normal mood - bonding well with baby, during visit Objective-Diagnostic Laboratory: 04/02/18 08:39 04/01/18 11:42 04/01/18 04/01/18 04/02/18 11:42 11:42 08:39 WBC 11.4 H 12.7 H RBC 4.21 3.64 L Hgb 12.3 10.6 L Hct 35.7 L 31.0 L MCV 85 85 MCH 29.3 29.2 MCHC 34.6 34.4 RDW 13.5 13.2 Plt Count 215 190 Seg Neutrophils % 71.1 Lymphocytes % 20.7 Monocytes % 7.1 Eosinophils % 0.9 Basophils % 0.2 Absolute Neutrophils 8.1 Absolute Lymphocytes 2.4 Absolute Monocytes 0.8 Absolute Eosinophils 0.1 Absolute Basophils 0.0 Sodium 138.0 Potassium 3.9 Chloride 109 H Carbon Dioxide 23 Anion Gap 6 BUN 4 L Creatinine 0.42 L Est GFR ( Amer) > 60 Est GFR (Non-Af Amer) > 60 Glucose 85 Calcium 9.1 Total Bilirubin 0.3 AST 24 ALT 30 Alkaline Phosphatase 129 H Total Protein 5.8 L Albumin 3.2 L Assessment and Plan(PN) - Assessment and Plan (1) Vaginal delivery Is this a current diagnosis for this admission?: Yes Plan: Routine pp care (2) Periurethral laceration, delivered, current hospitalization Is this a current diagnosis for this admission?: Yes Plan: monitor for s/s of infection. (3) Morbid obesity Is this a current diagnosis for this admission?: Yes Plan: saw creel clerk during , continue healthy eating pp (4) Benzodiazepine abuse Is this a current diagnosis for this admission?: Yes Plan: pt currently in program, discharge planning placed (5) Tobacco dependency Is this a current diagnosis for this admission?: Yes Plan: cesation encouraged (6) Hepatitis C Qualifiers: Viral hepatitis chronicity: chronic Is this a current diagnosis for this admission?: Yes Plan: needs to f/u with specialist pp (7) Hx of intravenous drug use, in remission Is this a current diagnosis for this admission?: Yes Plan: continue abstinence, outpatient program and counseling - Time Spent with Patient Time with patient: Less than 15 minutes Smoking Education Provided: Over 3 minutes Medications reviewed and adjusted accordingly: Yes - Disposition Anticipated Discharge: Home Within: within 24 hours
[2018-04-03] MEDS: IBUPROFEN 800 MG TABLET PO SCH (06:37)
[2018-04-03 08:38] VITALS: BP 115/91
[2018-04-03] MEDS: PRENATAL VITAMIN W DHA CAPSULE PO SCH (10:15)
[2018-04-03] MEDS: SENNOSIDES/DOCUSATE 8.6-50 MG 1 EACH TABLET PO SCH (10:15)
[2018-04-03] MEDS: FAMOTIDINE 20 MG TABLET PO SCH (10:15)
[2018-04-03] MEDS: DOCUSATE SODIUM 100 MG CAPSULE PO SCH (10:15)
[2018-04-03] MEDS: FERROUS SULFATE 325 MG TABLET PO SCH (10:15)
[2018-04-03 10:39] LABS: HEPATITIS C QUANTITATION 621000 IU/mL (.)
--- NOTE | 2018-04-03 10:50 | PDOC PROGRESS REPORT ---
Subjective-OB Progress Note for:: 04/03/18 Subjective: Doing well, baby is not going home, would like to stay here today, breast feeding, got rx for subutex Physical Exam (OB) Vital Signs: Temp Pulse Resp BP Pulse Ox 98.0 F 90 15 115/91 H 100 04/03/18 07:56 04/03/18 07:56 04/03/18 07:56 04/03/18 07:56 04/03/18 07:56 Intake & Output 04/02/18 04/03/18 04/04/18 06:59 06:59 06:59 Intake Total 50 880 Balance 50 880 - PIH/Pre-Eclampsia DTR's: 2 + Clonus: Negative Headache: Absent Epigastric Pain: No Visual Changes: No - Lochia Lochia Amount: Scant < 10 ml Lochia Color: Rubra/Red - Abdomen Description: Soft Hernia Present: No Fundal Description: Firm, Midline Fundal Height: u/u - u/2 Objective-Diagnostic Laboratory: 04/02/18 08:39 04/01/18 11:42 Assessment and Plan(PN) - Assessment and Plan (1) Vaginal delivery Is this a current diagnosis for this admission?: Yes (2) Anemia affecting in third trimester Is this a current diagnosis for this admission?: Yes (3) Periurethral laceration, delivered, current hospitalization Is this a current diagnosis for this admission?: Yes (4) Morbid obesity Is this a current diagnosis for this admission?: Yes (5) Benzodiazepine abuse Is this a current diagnosis for this admission?: Yes (6) Hepatitis C Qualifiers: Viral hepatitis chronicity: chronic Is this a current diagnosis for this admission?: Yes (7) complicated by subutex maintenance, antepartum Is this a current diagnosis for this admission?: Yes - Time Spent with Patient Time with patient: Less than 15 minutes Smoking Education Provided: Over 3 minutes Medications reviewed and adjusted accordingly: Yes - Disposition Anticipated Discharge: Home Within: within 24 hours
--- NOTE | 2018-04-03 10:56 | PDOC DISCHARGE SUMMARY ---
Final Diagnosis Discharge Date: 04/03/18 - Final Diagnosis (1) Vaginal delivery Is this a current diagnosis for this admission?: Yes (2) Anemia affecting in third trimester Is this a current diagnosis for this admission?: Yes (3) Periurethral laceration, delivered, current hospitalization Is this a current diagnosis for this admission?: Yes (4) Morbid obesity Is this a current diagnosis for this admission?: Yes (5) Benzodiazepine abuse Is this a current diagnosis for this admission?: Yes (6) Hepatitis C Is this a current diagnosis for this admission?: Yes (7) complicated by subutex maintenance, antepartum Is this a current diagnosis for this admission?: Yes Discharge Data - Discharge Medication Home Medications: Buprenorphine HCl [Subutex 8 mg Sublingual Tablet] 2 tab SL DAILY 03/24/18 Pnv,Calcium 72/Iron/Folic Acid [ Plus Tablet] 1 tab PO DAILY 03/24/18 Gestational Age: 38 Reason(s) for Admission: Induction of Labor, Group B Strep Positive Admission Note: non reassuring status Procedures: NST, Ultrasound Intrapartum Procedure(s): Spontaneous Vaginal Delivery Complication(s): Laceration-Periurethral Laceration-Degree: 1st - [place] Data Baby 1 Male at 1 minute: 9 at 5 minutes: 9 Weight: 2.835 kg Home with Mother: Yes Complications: No - Diagnosis Test Laboratory: Temp Pulse Resp BP Pulse Ox 98.0 F 90 15 115/91 H 100 04/03/18 07:56 04/03/18 07:56 04/03/18 07:56 04/03/18 07:56 04/03/18 07:56 03/31/18 03/31/18 04/01/18 19:45 19:50 11:42 RBC 4.39 4.21 Hgb 13.0 12.3 Hct 37.4 35.7 L Urine Opiates Screen NEGATIVE 04/02/18 08:39 RBC 3.64 L Hgb 10.6 L Hct 31.0 L Urine Opiates Screen - Discharge information/Instructions Discharge Activity: Activity As Tolerated, No Lifting Over 10 Pounds, Pelvic Rest Discharge Diet: As Tolerated, Regular Disposition: HOME, SELF-CARE Follow up with: [facility] in: 4, Weeks
== END 2018-04-03 14:24 | disposition home or self-care (01) | DRG 806 ==
LOC: LC 16:03 → LR 19:31 → 2S 04-02 00:38
PROVIDERS: ADMIT Obstetrics & Gynecology; ATTEND Obstetrics & Gynecology
PROC: 10E0XZZ Delivery of Products of Conception, External Approach (ICD-10-PCS; principal; 2018-04-01)
PROC: 0HQ9XZZ Repair Perineum Skin, External Approach (ICD-10-PCS; 2018-04-01)
PROC: 3E033VJ Introduction of Other Hormone into Peripheral Vein, Percutaneous Approach (ICD-10-PCS; 2018-04-01)
PROC: 10907ZC Drainage of Amniotic Fluid, Therapeutic from Products of Conception, Via Natural or Artificial Opening (ICD-10-PCS; 2018-04-01)
PROC: 4A1HX4Z Monitoring of Products of Conception, Cardiac Electrical Activity, External Approach (ICD-10-PCS; 2018-04-01)
DX: O76 Abnormality in fetal heart rate and rhythm complicating labor and delivery (principal); O98.42 Viral hepatitis complicating childbirth; Z37.0 Single live birth; O99.324 Drug use complicating childbirth; E66.01 Morbid (severe) obesity due to excess calories; O99.820 Streptococcus B carrier state complicating pregnancy; O99.02 Anemia complicating childbirth; D64.9 Anemia, unspecified; O71.82 Other specified trauma to perineum and vulva; B19.20 Unspecified viral hepatitis C without hepatic coma; O99.214 Obesity complicating childbirth; O69.1XX0 Labor and delivery complicated by cord around neck, with compression, not applicable or unspecified; Z3A.38 38 weeks gestation of pregnancy; F11.10 Opioid abuse, uncomplicated; O99.333 Smoking (tobacco) complicating pregnancy, third trimester; F19.21 Other psychoactive substance dependence, in remission
CPT/HCPCS: 36415; 59025; 76819; 80053; 80307; 81005; 85025; 85027; 86592; 86850; 86900; 86901; 87522; 88307; 94760; C1726; J2540; J2590; J3010; J3490

== ENCOUNTER 2019-03-30 15:09 | Outpatient (CLI) | payer MEDICAID | END 2019-03-30 16:47 | disposition home or self-care (01) | LOC: LC 15:09 | PROVIDERS: ATTEND Obstetrics & Gynecology | PROC: 4A1HXCZ Monitoring of Products of Conception, Cardiac Rate, External Approach (ICD-10-PCS; principal; 2019-03-30) | DX: Z34.93 Encounter for supervision of normal pregnancy, unspecified, third trimester (principal) ==

== ENCOUNTER 2019-04-08 14:15 | Outpatient (CLI) | payer MEDICAID ==
--- NOTE | 2019-04-08 16:55 | RADIOLOGY REPORT (SQ) ---
EXAM DESCRIPTION: U/S PROFILE W/O STRESS COMPLETED DATE/TIME: 04/08/2019 4:37 pm REASON FOR STUDY: nonreactive NST COMPARISON: 04/01/2018. TECHNIQUE: Limited bergman-scale realtime and static images of the fetus to measure specified parameter s. LIMITATIONS: None. FINDINGS: HEART RATE: 135-140 beats per minute. [place]: 17.7 cm. BREATHING MOVEMENT: 0 points. MOVEMENT: 2 points. POSTURE AND TONE: 2 points. QUALITATIVE [place]: 2 points. OTHER: No other significant finding. IMPRESSION: BIOPHYSICAL PROFILE: 08/02. Trimester of : Third - 28 weeks to delivery COMMENT: BREATHING MOVEMENTS: 2 POINTS: PRESENT 0 POINTS: ABSENT MOTION: 2 POINTS: PRESENT 0 POINTS: ABSENT TONE: 2 POINTS: PRESENT 0 POINTS: ABSENT AMNIOTIC FLUID VOLUME: 2 POINTS: LARGEST POCKET GREATER THAN 2 CM DEPTH. 0 POINTS: NO POCKET OF 2 CM. TECHNICAL DOCUMENTATION: JOB ID: [id number] 2010 [employer]- All Rights Reserved Reading location - IP/workstation name: [email or web address]
== END 2019-04-08 18:21 | disposition home or self-care (01) ==
LOC: LC 14:15
PROVIDERS: ATTEND Obstetrics & Gynecology
PROC: 4A1HXCZ Monitoring of Products of Conception, Cardiac Rate, External Approach (ICD-10-PCS; principal; 2019-04-08)
DX: O99.333 Smoking (tobacco) complicating pregnancy, third trimester (principal); F17.210 Nicotine dependence, cigarettes, uncomplicated; Z3A.34 34 weeks gestation of pregnancy
CPT/HCPCS: 59025; 76819

== ENCOUNTER 2019-04-16 14:18 | Outpatient (CLI) | payer MEDICAID ==
--- NOTE | 2019-04-16 14:29 | Non Stress Test Report ---
Non Stress Test Datetime Report Generated by CPN: 04/16/2019 14:29 DEMOGRAPHIC EGA NST: 34.2 EGA NST: 33.0 INDICATION Indication for Study (NST) Other: Subutex use MONITORING Monitor Explained: Monitor Explained; Test Explained; Patient Verbalized Understanding Time on Monitor: 04/08/2019 17:30 Time on Monitor: 03/30/2019 15:16 Time off Monitor: 04/08/2019 18:11 NST Duration: 41 NST INTERVENTIONS NST Interventions: PO Hydration; Meal Given; Reposition Patient; For Biophysical Profile NST Interventions: PO Hydration; Reposition Patient Physician Notified NST: Dr Brito Physician Notified NST: JCox CNM BABY A: [id number] BABY A Movement : Present Contraction Frequency : denies Contraction Frequency : none FHR Baseline : 140 Accelerations : 10X10 Decelerations : None Variability : Moderate 6-25bpm Variability : Moderate 6-25bpm NST Review: Does Not Meet Criteria for Reactive NST NST Review and Verified By : Dr Brito at bedside NST Results: Non-Reactive NST REPORT Report Trigger: Send Report
--- NOTE | 2019-04-16 14:58 | Non Stress Test Report ---
Non Stress Test Datetime Report Generated by CPN: 04/16/2019 14:58 DEMOGRAPHIC EGA NST: 35.3 VITAL SIGNS Temperature - NST: 98.4 URINE RESULTS Urine Blood - NST: Negative MONITORING Monitor Explained: Monitor Explained; Test Explained; Patient Verbalized Understanding Time on Monitor: 04/16/2019 14:28 Time off Monitor: 04/16/2019 14:52 NST Duration: 24 NST INTERVENTIONS NST Interventions: PO Hydration Physician Notified NST: P Matthews CNM BABY A Movement : Present Contraction Frequency : 0 FHR Baseline : 135 Accelerations : 15X15 Decelerations : None Variability : Moderate 6-25bpm NST Review: Meets Criteria for Reactive NST NST Review and Verified By : MADDI LUEVANO Results: Reactive NST REPORT Report Trigger: Send Report
== END 2019-04-16 15:00 | disposition home or self-care (01) ==
LOC: LC 14:18
PROVIDERS: ATTEND Student in an Organized Health Care Education/Training Program
PROC: 4A1HXCZ Monitoring of Products of Conception, Cardiac Rate, External Approach (ICD-10-PCS; principal; 2019-04-16)
DX: O36.5930 Maternal care for other known or suspected poor fetal growth, third trimester, not applicable or unspecified (principal); Z3A.35 35 weeks gestation of pregnancy

== ENCOUNTER 2019-04-22 12:06 | Outpatient (CLI) | payer MEDICAID ==
--- NOTE | 2019-04-22 12:57 | Non Stress Test Report ---
Non Stress Test Datetime Report Generated by CPN: 04/22/2019 12:57 DEMOGRAPHIC EGA NST: 36.2 INDICATION Indication for Study (NST) Other: SUBUTEX VITAL SIGNS Temperature - NST: 98.3 Pulse - NST: 112 RESP - NST: 18 NBPSYS NST: 118 NBPDIA NST: 56 MONITORING Monitor Explained: Monitor Explained; Test Explained; Patient Verbalized Understanding Time on Monitor: 04/22/2019 12:15 NST INTERVENTIONS NST Interventions: PO Hydration; Reposition Patient Physician Notified NST: C POLO, CNM BABY A: [id number] BABY A Movement : Present Contraction Frequency : NONE FHR Baseline : 135 Accelerations : 15X15 Decelerations : None Variability : Moderate 6-25bpm NST Review: Meets Criteria for Reactive NST NST Review and Verified By : Raf Castro RN NST Results: Reactive NST REPORT Report Trigger: Send Report
== END 2019-04-22 12:55 | disposition home or self-care (01) ==
LOC: LC 12:06
PROVIDERS: ATTEND Obstetrics & Gynecology
PROC: 4A1HXCZ Monitoring of Products of Conception, Cardiac Rate, External Approach (ICD-10-PCS; principal; 2019-04-22)
DX: O99.333 Smoking (tobacco) complicating pregnancy, third trimester (principal); F17.210 Nicotine dependence, cigarettes, uncomplicated; Z3A.36 36 weeks gestation of pregnancy; Z79.891 Long term (current) use of opiate analgesic
CPT/HCPCS: 59025

== ENCOUNTER 2019-05-01 14:26 | Outpatient (CLI) | payer MEDICAID | END 2019-05-01 15:24 | disposition home or self-care (01) | LOC: LC 14:26 | PROVIDERS: ATTEND Student in an Organized Health Care Education/Training Program | PROC: 4A1HXCZ Monitoring of Products of Conception, Cardiac Rate, External Approach (ICD-10-PCS; principal; 2019-05-01) | PROC: 4A1HXCZ Monitoring of Products of Conception, Cardiac Rate, External Approach (ICD-10-PCS; 2019-05-01) | DX: O99.333 Smoking (tobacco) complicating pregnancy, third trimester (principal); O36.8330 Maternal care for abnormalities of the fetal heart rate or rhythm, third trimester, not applicable or unspecified; F17.210 Nicotine dependence, cigarettes, uncomplicated; Z3A.37 37 weeks gestation of pregnancy | CPT/HCPCS: 59025 ==

== ENCOUNTER 2019-05-12 17:16 | Inpatient (IN) | payer MEDICAID ==
[2019-05-12] MEDS ORDERED: RINGERS SOLUTION,LACTATED 1,000 ML IV ONE (17:31)
[2019-05-12] MEDS ORDERED: RINGERS SOLUTION,LACTATED 1,000 ML IV PRN (17:31)
[2019-05-12 18:02] LABS: ABSOLUTE EOSINOPHILS # (AUTO) 0.1 10^3/uL (0.0-0.6); ABSOLUTE MONOCYTES (AUTO) 0.7 10^3/uL (0.1-1.4); ABSOLUTE NEUT (AUTO) 7.3 10^3/uL (1.7-8.2); BASOPHILS % (AUTO) 0.3 % (0-2); EOSINOPHILS % (AUTO) 1.3 % (0-6); HEMATOCRIT 35.6 % (36.0-47.0); LYMPHOCYTES % (AUTO) 20.1 % (13-45); MEAN CORPUSCULAR HEMOGLOBIN 27.5 pg (27.0-33.4); MEAN CORPUSCULAR HGB CONC 33.7 g/dL (32.0-36.0); MEAN CORPUSCULAR VOLUME 82 fl (80-97); MONOCYTES % (AUTO) 6.7 % (3-13); PLATELET COUNT 183 10^3/uL (150-450); RED BLOOD COUNT 4.37 10^6/uL (3.72-5.28); RED CELL DISTRIBUTION WIDTH 14.4 % (11.5-14.0); SEGMENTED NEUTROPHILS % (AUTO) 71.6 % (42-78); TOTAL CELLS COUNTED % (AUTO) 100 %; WHITE BLOOD COUNT 10.1 10^3/uL (4.0-10.5)
[2019-05-12 18:21] LABS: APPEARANCE,URINE CLEAR; BILIRUBIN,URINE NEGATIVE (NEGATIVE); COLOR,URINE YELLOW; GLUCOSE, URINE NEGATIVE (NEGATIVE); KETONES,URINE NEGATIVE (NEGATIVE); LEUKOCYTE ESTERASE,URINE TRACE (NEGATIVE); NITRITE,URINE NEGATIVE (NEGATIVE); PROTEIN,URINE NEGATIVE (NEGATIVE); URINE SPECIFIC GRAVITY 1.008
[2019-05-12 18:43] LABS: URINE AMPHETAMINES SCREEN NEGATIVE; URINE BARBITURATES SCREEN NEGATIVE; URINE BENZODIAZEPINES SCREEN NEGATIVE; URINE COCAINE SCREEN NEGATIVE; URINE MARIJUANA (THC) SCREEN NEGATIVE; URINE METHADONE SCREEN NEGATIVE; URINE PHENCYCLIDINE SCREEN NEGATIVE
[2019-05-12] MEDS ORDERED: OXYTOCIN 10 UNIT/ML VIAL ONE (18:49)
[2019-05-12] MEDS ORDERED: MISOPROSTOL 0.2 MG TABLET ONE (18:49)
[2019-05-12] MEDS ORDERED: OXYTOCIN/NORMAL SALINE 20 UNIT/1,000 ML RTUINJ ONE (18:50)
[2019-05-12] MEDS ORDERED: LIDOCAINE 1% INJ-PF (10 MG/ML) 30 ML SDV ONE (18:50)
[2019-05-12] MEDS ORDERED: PENICILLIN G-K 5 MILLION UNIT VIAL ONE (18:50)
[2019-05-12] MEDS ORDERED: PENICILLIN G POTASSIUM 5,000,000 UNIT in DEXTROSE 5%-WATER 100 ML IV ONE (19:00)
[2019-05-12 19:06] LABS: PARTIAL THROMBOPLASTIN TIME 30.9 SEC (23.5-35.8); PROTHROMBIN TIME 13.2 SEC (11.4-15.4)
--- NOTE | 2019-05-12 19:19 | Admission Physical ---
Datetime Report Generated by CPN: 05/12/2019 19:19 CURRENT ADMISSION Chief Complaint: Scheduled Induction of Labor Indication for Induction: IUGR Admit Impression : Term, Intrauterine ; No Active Labor; Intact Membranes; Induction of Labor Admit Plan: Admit to Unit; Initiate Labor Induction Protocol ALLERGIES Medication Allergies: No Medication Allergies: No Known Allergies (05/12/2019) Latex: Latex Allergies Food Allergies: none Environmental Allergies: none OBSTETRICAL HISTORY EDC: 05/18/2019 00:00 : 4 Para: 3 Term: 3 : 0 SAB: 0 IAB: 0 Ectopic: 0 Livin Cesareans: 0 VBACs: 0 Multiple Births: 0 Gestational Diabetes: No Rh Sensitization: No Incompetent Cervix: No DEANDRE: No Infertility: No ART Treatment: No Uterine Anomaly: No IUGR: Yes Hx Previous C/S: No Macrosomia: No Hx Loss/Stillborn: No PIH: No Hx : No Placenta Previa/Abruption: No Depression/PP Depression: No PTL/PROM: No Post Hemorrhage: No Current Procedures: Ultrasound; NST Obstetrical History Comments: G1- G2- G3- G4- SEE RECORDS Alcohol: No Marijuana : No Cocaine: No Other Illicit Drugs: No Cigarettes: Current Everyday Smoker. [phone] Cigarette Frequency: > 10 per day Advised to Stop: Yes MEDICAL HISTORY Diabetes: No Blood Transfusion: No Pulmonary Disease (Asthma, TB): No Breast Disease: No Hypertension: No Slot Attendant Surgery: No Heart Disease: No Hosp/Surgery: Yes Autoimmune Disorder: No Anesthetic Complications: No Kidney Disease: No Abnormal Pap Smear: Yes Neuro/Epilepsy: No Psychiatric Disorders: No Other Medical Diseases: No Hepatitis/Liver Disease: Yes Significant Family History: No Varicosities/Phlebitis: No Trauma/Violence : No Thyroid Dysfunction: No Medical History Comments: hepatitis c positive Bipolar disorder, depression abnormal pap-2013,2017,2018 past adenoids and tonsil surgery INFECTIOUS HISTORY Gonorrhea: No Genital Herpes: No Chlamydia: No Tuberculosis: No Syphilis: No Hepatitis: Yes HIV/AIDS Exposure: No Rash or Viral Illness: Yes HPV: Yes Infectious History Comments: HPV-2013 Hep C-2017 rash PHYSICAL EXAM General: Normal HEENT: Normal Neurologic: Normal Thyroid: Deferred Heart: Normal Lungs: Normal Breast: Deferred Back: Normal Abdomen: Normal Genitourinary Exam: Normal Extremities: Normal DTRs: Normal Pelvic Type: Adequate Vital Signs: Reviewed VAGINAL EXAM Dilatation: 3 Effacement: 80 Station: -3 Contraction Comments: none MEMBRANES Membranes: Intact FETUS A EGA: 39.1 Monitoring: External US FHR- Baseline: 125 Variability: Moderate 6-25bpm Accelerations: 15X15 Decelerations: None FHR Category: Category I Presentation: Vertex Admit Comment: 29yo at 39+1ega presents for IOL due to IUGR. c/b Hep C. Needs GI referral as pp for treatment. On Subutex - takes 1/2 of 8mg Subutex - to total 22mg of subutex staggered per patient (Management by Dr. Rouse in [place]), Tobacco abuse, depression, + AFP (SLOS), Materniti 21 negative. EFW less than 7%. GBS positive. Polyhydramnios at one point in but then now resolved. Bile acids normal. Admit to labor and delivery for pitocin for IOL. US at bedside by myself verified position of vertex. PLANS FOR LABOR AND DELIVERY Labor and Delivery: None Pain Management: Natural Feeding Preference: Breast Benefit of Breast Feed Discussed: Yes Circumcision: Yes INFORMED CONSENT Informed Consent Obtained: Vaginal Delivery; Induction of Labor; Risks, Benefits and Alternatives Discussed Signature: with User ID: [email or web address]
[2019-05-12 19:24] LABS: ALBUMIN 3.1 g/dL (3.5-5.0); ALKALINE PHOSPHATASE 100 U/L (38-126); ANION GAP 8 (5-19); ASPARTATE AMINO TRANSFERASE 28 U/L (14-36); BILIRUBIN,DIRECT 0.2 mg/dL (0.0-0.4); BILIRUBIN,TOTAL 0.4 mg/dL (0.2-1.3); BLOOD UREA NITROGEN 6 mg/dL (7-20); CARBON DIOXIDE 22 mmol/L (22-30); CHLORIDE 106 mmol/L (98-107); GLUCOSE 75 mg/dL (75-110); TOTAL PROTEIN 6.4 g/dL (6.3-8.2)
[2019-05-12] MEDS ORDERED: OXYTOCIN/NORMAL SALINE 20 UNIT/1,000 ML RTUINJ IV PRN (19:31)
[2019-05-13] MEDS ORDERED: EPHEDRINE SULFATE INJ 50 MG/1 ML AMPULE ONE (09:16)
[2019-05-13] MEDS ORDERED: FENTANYL/BUPIVACAINE/NS/PF 300 MCG/150 ML RTUINJ EPI ONE (09:17)
[2019-05-13] MEDS ORDERED: BUPIVACAINE HCL 0.25 % INJ/PF (2.5 MG/1 ML) 30 ML VIAL ONE (09:17)
[2019-05-13] MEDS ORDERED: OXYTOCIN/NORMAL SALINE 20 UNIT/1,000 ML RTUINJ ONE (11:17)
[2019-05-13] MEDS ORDERED: OXYTOCIN/NORMAL SALINE 20 UNIT/1,000 ML RTUINJ IV PRN (11:50)
[2019-05-13] MEDS ORDERED: ACETAMINOPHEN 325 MG TABLET PO PRN (11:50)
[2019-05-13] MEDS ORDERED: DIBUCAINE 1% OINTMENT 28 GM TP PRN (11:50)
[2019-05-13] MEDS ORDERED: NA PHOS,M-B/NA PHOS,DI-BA (ADULT) 133 ML ENEMA PR PRN (11:50)
[2019-05-13] MEDS ORDERED: GLYCERIN/WITCH HAZEL LEAF 1 EACH MED..WIPE TP PRN (11:50)
[2019-05-13] MEDS ORDERED: BENZOCAINE/MENTHOL AEROSOL SPRAY 56 ML TOP PRN (11:50)
[2019-05-13] MEDS ORDERED: PROMETHAZINE HCL 25 MG SUPP.RECT PR PRN (11:50)
[2019-05-13] MEDS ORDERED: DIPHENHYDRAMINE HCL 25 MG CAPSULE PO PRN (11:50)
[2019-05-13] MEDS ORDERED: PSEUDOEPHEDRINE HCL 30 MG TABLET PO PRN (11:50)
[2019-05-13] MEDS ORDERED: MEASLES,MUMPS&RUBELLA VACC/PF 0.5 ML VIAL SUBCUT PRN (11:50)
[2019-05-13] MEDS ORDERED: DIPH/PERTUSS(ACELL)/TETANUS VAC/PF 0.5 ML SYR (>=10YO) IM PRN (11:50)
[2019-05-13] MEDS ORDERED: PROMETHAZINE HCL 25 MG TABLET PO PRN (11:50)
[2019-05-13] MEDS ORDERED: PROMETHAZINE HCL INJ 25 MG/1 ML VIAL IV PRN (11:50)
[2019-05-13] MEDS ORDERED: MAGNESIUM HYDROXIDE SUSP 30 ML UDCUP PO PRN (11:50)
--- NOTE | 2019-05-13 13:17 | Delivery Summary ---
Del Sum A-C Datetime Report Generated by CPN: 05/13/2019 13:16 DELIVERY PERSONNEL DELIVERY PERSONNEL: [id number] Delivery Doctor:: Quin Hernandez CNM Nurse Medical Staff Services Coordinator Certified:: Quin Hernandez CNM Labor and Delivery Nurse:: Marion Gaitan RNfinancial compliance officer Nurse:: CROW Mistry Nursery Nurse:: Maria G Cole RN Bark Scaler/ORACLE CONSULTANT: Hannah De Leon CNA II Bark Scaler/ORACLE CONSULTANT: Silvia Johnson, CUT TOBACCO BULKER MATERNAL INFORMATION Delivery Anesthesia: Epidural Medications After Delivery: Pitocin Bolus-Please Comment Meds After Delivery Comment: Pitocin 20 units in 1000 ml nss open for bolus after delivery of placenta Delivery QBL: 50 Delivery QBL Comment: 50 Maternal Complications: None Provider Comments: pt progressed to c/c/2 with urge to push, began pushing and quickly delivered a viable baby boy. Baby delivered thru nuchal cord x2, cord reduced after delivery then baby placed on maternal abdomen. Strong cry and vigorous respiratory effort with tactile stimulation. Cord allowed to stop pulsating then clamped x2 and cut by grandmother (cord blood obtained, 3vc noted). Placenta delivered spontaneously intact and sent to pathology for eval. Fundus firm @ U-2, scant bleeding. Vaginal and perineal inspection revealed no lacerations. Mother and baby remain skin to skin and bonding at this time. Nursery RN at delivery LABOR SUMMARY EDC: 05/18/2019 00:00 No. Babies in Womb: 1 Attempted: No Labor Anesthesia: Epidural LABOR INFORMATION Reason for Induction: Intrauterine Growth Retardation Onset of Labor: 05/13/2019 06:21 Complete Dilatation: 05/13/2019 11:01 Oxytocin: Induction Group B Beta Strep: Positive Antibiotics # of Doses: 1 Antibiotics Time of Last Dose: 45 Name of Antibiotic Given: pcn Steroids Given: None Reason Steroids Not Administered: Not Applicable MEMBRANES Membranes Rupture Method: Artificial Rupture of Membranes: 05/13/2019 06:20 Length of Rupture (hr): 4.85 Amniotic Fluid Color: Clear Amniotic Fluid Amount: Moderate Amniotic Fluid Odor: None STAGES OF LABOR Stage 1 hr: 4 Stage 1 min: 40 Stage 2 hr: 0 Stage 2 min: 10 Stage 3 hr: 0 Stage 3 min: 5 Total Time in Labor hr: 4 Total Time in Labor min: 55 VAGINAL DELIVERY Episiotomy: None Laceration #1: None Laceration Extension #1: N/A Laceration Repair: Not Applicable Sponge Count Correct: N/A Sharps Count Correct: N/A CSECTION DELIVERY Primary Indication: N/A Secondary Indication: N/A CSection Incidence: N/A Labor: N/A Elective: N/A CSection Incision: N/A BABY A INFORMATION Infant Delivery Date/Time: 05/13/2019 11:11 Method of Delivery: Vaginal Nurse Controlled Delivery: No Born in Route : No : N/A Forceps: N/A Vacuum Extraction: N/A Shoulder Dystocia : Yes PRESENTATION/POSITION BABY A Presentation: Cephalic Cephalic Presentation: Vertex Vertex Position: Right Occipital Anterior Breech Presentation: N/A PLACENTA INFORMATION BABY A Placenta Delivery Time : 05/13/2019 11:16 Placenta Method of Delivery: Spontaneous Placenta Status: Delivered SCORES BABY A Heart Rate 1 min: >100 bpm Resp Effort 1 min: Good Cry Reflex Irritability 1 min: Grimace Muscle Tone 1 min: Active Motion Color 1 min: Body [place], Extremities Blue Resuscitation Effort 1 min: Tactile Stimulation SCORE 1 MIN: 8 Heart Rate 5 min: >100 bpm Resp Effort 5 min: Good Cry Reflex Irritability 5 min: Cough or Sneeze or Pulls Away Muscle Tone 5 min: Active Motion Color 5 min: Body [place], Extremities Blue Resuscitation Effort 5 min: N/A SCORE 5 MIN: 9 INFANT INFORMATION BABY A Gestational Age at Delivery: 39.2 Gestational Status: Full Term- 39- 40.6 Weeks Outcome : Liveborn Condition : Stable Sex: Male IDENTIFICATION BABY A Verification Date/Time: 05/13/2019 11:47 ID Band Number: [id number] Mother's Name Verified: Yes Infant RN Verifying : Alfredito Gaitan RN Additional Verifying Personnel: Luis Enrique De Leon ORACLE CONSULTANT II WEIGHT/LENGTH BABY A Infant Birthweight (gm): 2452 Infant Weight (lb): 5 Weight (oz): 6 Infant Length (in): 18.75 Length (cm): 47.63 CORD INFORMATION BABY A No. Cord Vessels: 3 Nuchal Cord : Around Neck x2, Loose Cord Blood Taken: Yes-For Storage (Mom's Blood type +) Infant Suction: None BABY B INFORMATION : N/A SIGNATURES Assignment: Keena Brito MD Signature: with User ID: [email or web address] : with User ID: [email or web address]
[2019-05-13] MEDS: IBUPROFEN 800 MG TABLET PO SCH ×2 (13:58→21:23)
[2019-05-13] MEDS: BUPRENORPHINE HCL 2 MG SUBLINGUAL TABLET SL SCH ×3 (13:58→21:21)
[2019-05-13] MEDS: FERROUS SULFATE 325 MG TABLET PO SCH (17:45)
[2019-05-13] MEDS ORDERED: DOCUSATE SODIUM 100 MG CAPSULE PO SCH (18:00)
[2019-05-13] MEDS ORDERED: INFLUENZA QUAD (6MOS+) 2019-20 VAC 0.5 ML SYR IM ONE (18:10)
[2019-05-13] MEDS: FAMOTIDINE 20 MG TABLET PO SCH (21:38)
[2019-05-14] MEDS: IBUPROFEN 800 MG TABLET PO SCH ×3 (06:46→21:59)
[2019-05-14 06:48] LABS: HEMATOCRIT 30.3 % (36.0-47.0); HEMOGLOBIN 10.5 g/dL (12.0-15.5); MEAN CORPUSCULAR HEMOGLOBIN 28.2 pg (27.0-33.4); MEAN CORPUSCULAR HGB CONC 34.7 g/dL (32.0-36.0); MEAN CORPUSCULAR VOLUME 81 fl (80-97); PLATELET COUNT 173 10^3/uL (150-450); RED BLOOD COUNT 3.72 10^6/uL (3.72-5.28); RED CELL DISTRIBUTION WIDTH 14.6 % (11.5-14.0); WHITE BLOOD COUNT 10.3 10^3/uL (4.0-10.5)
[2019-05-14] MEDS: PENICILLIN G POTASSIUM 2,500,000 UNIT in DEXTROSE 5%-WATER 50 ML IV SCH (07:44)
[2019-05-14] MEDS: FAMOTIDINE 20 MG TABLET PO SCH (09:27)
[2019-05-14] MEDS: SENNOSIDES/DOCUSATE 8.6-50 MG 1 EACH TABLET PO SCH (09:28)
[2019-05-14] MEDS: BUPRENORPHINE HCL 2 MG SUBLINGUAL TABLET SL SCH ×3 (09:28→22:00)
[2019-05-14] MEDS: FERROUS SULFATE 325 MG TABLET PO SCH ×2 (09:28→17:12)
[2019-05-14] MEDS: PRENATAL VITAMIN W DHA CAPSULE PO SCH (09:28)
--- NOTE | 2019-05-14 12:27 | PDOC PROGRESS REPORT ---
Subjective-OB Progress Note for:: 05/14/19 Physical Exam (OB) Vital Signs: Temp Pulse Resp BP Pulse Ox 98.0 F 85 16 122/72 100 05/14/19 08:08 05/14/19 08:08 05/14/19 08:08 05/14/19 08:08 05/14/19 08:08 Intake & Output 05/13/19 05/14/19 05/15/19 06:59 06:59 06:59 Intake Total 750 Balance 750 Weight 102.3 kg - PIH/Pre-Eclampsia Clonus: Negative Headache: Absent Epigastric Pain: No Visual Changes: No - Lochia Lochia Amount: Small 10-25 ml Lochia Color: Rubra/Red - Abdomen Description: Soft Hernia Present: No Bowel Sounds: Normoactive Flatus Presence: Present Stool: No Fundal Description: Firm, Midline Fundal Height: u/u - u/2 Objective-Diagnostic Laboratory: 05/14/19 06:34 05/12/19 18:39 05/14/19 06:34 WBC 10.3 RBC 3.72 Hgb 10.5 L Hct 30.3 L MCV 81 MCH 28.2 MCHC 34.7 RDW 14.6 H Plt Count 173
[2019-05-15] MEDS: FAMOTIDINE 20 MG TABLET PO SCH ×2 (00:26→13:10)
[2019-05-15] MEDS: IBUPROFEN 800 MG TABLET PO SCH ×2 (05:41→13:12)
[2019-05-15 09:04] VITALS: BP 149/88
[2019-05-15] MEDS: BUPRENORPHINE HCL 2 MG SUBLINGUAL TABLET SL SCH (10:17)
[2019-05-15] MEDS: PRENATAL VITAMIN W DHA CAPSULE PO SCH (10:17)
[2019-05-15] MEDS: SENNOSIDES/DOCUSATE 8.6-50 MG 1 EACH TABLET PO SCH (10:17)
[2019-05-15] MEDS: FERROUS SULFATE 325 MG TABLET PO SCH (10:17)
--- NOTE | 2019-05-15 11:17 | PDOC DISCHARGE SUMMARY ---
Impression - Admit/DC Date/PCP Admission Date/Primary Care Provider: 05/12/19 17:16 MARCELINA ARAUZ MD Discharge Date: 05/15/19 - Discharge Diagnosis (1) Carrier of group B Streptococcus Is this a current diagnosis for this admission?: Yes (2) Intrauterine growth restriction affecting care of mother Is this a current diagnosis for this admission?: Yes (3) complicated by subutex maintenance, antepartum Is this a current diagnosis for this admission?: Yes (4) Hepatitis C Is this a current diagnosis for this admission?: Yes (5) Hx of intravenous drug use, in remission Is this a current diagnosis for this admission?: Yes (6) Morbid obesity Is this a current diagnosis for this admission?: Yes (7) Tobacco dependency Is this a current diagnosis for this admission?: Yes (8) History of MRSA infection Is this a current diagnosis for this admission?: Yes - Additional Information Discharge Diet: Regular Discharge Activity: Activity As Tolerated, Pelvic Rest Referrals: MARCELINA ARAUZ MD [Primary Care Provider] - Prescriptions: Ibuprofen [Motrin 800 mg Tablet] 800 mg PO Q8HP PRN #60 tablet PRN Reason: Home Medications: Buprenorphine HCl [Subutex 8 mg Sublingual Tablet] 22 tab SL DAILY 03/24/18 Pnv No.103/Folic/Om3s/Fish Oil [ Gummies] 1 tab PO DAILY 04/22/19 Ibuprofen [Motrin 800 mg Tablet] 800 mg PO Q8HP PRN #60 tablet 05/15/19 HPI Procedures: NST Intrapartum Procedure(s): Spontaneous Vaginal Delivery Results Laboratory Results: WBC 10.3 10^3/uL (4.0-10.5) 05/14/19 06:34 RBC 3.72 10^6/uL (3.72-5.28) 05/14/19 06:34 Hgb 10.5 g/dL (12.0-15.5) L 05/14/19 06:34 Hct 30.3 % (36.0-47.0) L 05/14/19 06:34 MCV 81 fl (80-97) 05/14/19 06:34 MCH 28.2 pg (27.0-33.4) 05/14/19 06:34 MCHC 34.7 g/dL (32.0-36.0) 05/14/19 06:34 RDW 14.6 % (11.5-14.0) H 05/14/19 06:34 Plt Count 173 10^3/uL (150-450) 05/14/19 06:34 Lymph % (Auto) 20.1 % (13-45) 05/12/19 17:52 [place] % (Auto) 6.7 % (3-13) 05/12/19 17:52 Eos % (Auto) 1.3 % (0-6) 05/12/19 17:52 Baso % (Auto) 0.3 % (0-2) 05/12/19 17:52 Absolute Neuts (auto) 7.3 10^3/uL (1.7-8.2) 05/12/19 17:52 Absolute Lymphs (auto) 2.0 10^3/uL (0.5-4.7) 05/12/19 17:52 Absolute Monos (auto) 0.7 10^3/uL (0.1-1.4) 05/12/19 17:52 Absolute Eos (auto) 0.1 10^3/uL (0.0-0.6) 05/12/19 17:52 Absolute Basos (auto) 0.0 10^3/uL (0.0-0.2) 05/12/19 17:52 Seg Neutrophils % 71.6 % (42-78) 05/12/19 17:52 PT 13.2 SEC (11.4-15.4) 05/12/19 18:39 INR 1.00 05/12/19 18:39 APTT 30.9 SEC (23.5-35.8) 05/12/19 18:39 Sodium 136.0 mmol/L (137-145) L 05/12/19 18:39 Potassium 4.0 mmol/L (3.6-5.0) 05/12/19 18:39 Chloride 106 mmol/L (98-107) 05/12/19 18:39 Carbon Dioxide 22 mmol/L (22-30) 05/12/19 18:39 Anion Gap 8 (5-19) 05/12/19 18:39 BUN 6 mg/dL (7-20) L 05/12/19 18:39 Creatinine 0.41 mg/dL (0.52-1.25) L 05/12/19 18:39 Est GFR ( Amer) > 60 (>60) 05/12/19 18:39 Est GFR (MDRD) Non-Af > 60 (>60) 05/12/19 18:39 Glucose 75 mg/dL (75-110) 05/12/19 18:39 Calcium 9.0 mg/dL (8.4-10.2) 05/12/19 18:39 Total Bilirubin 0.4 mg/dL (0.2-1.3) 05/12/19 18:39 Direct Bilirubin 0.2 mg/dL (0.0-0.4) 05/12/19 18:39 Neonat Total Bilirubin Not Reportable 05/12/19 18:39 Neonat Direct Bilirubin Not Reportable 05/12/19 18:39 Neonat Indirect Bili Not Reportable 05/12/19 18:39 AST 28 U/L (14-36) 05/12/19 18:39 ALT 21 U/L (<35) 05/12/19 18:39 Alkaline Phosphatase 100 U/L (38-126) 05/12/19 18:39 Total Protein 6.4 g/dL (6.3-8.2) 05/12/19 18:39 Albumin 3.1 g/dL (3.5-5.0) L 05/12/19 18:39 Urine Color YELLOW 05/12/19 17:30 Urine Appearance CLEAR 05/12/19 17:30 Urine pH 6.0 (5.0-9.0) 05/12/19 17:30 Ur Specific [place] 1.008 05/12/19 17:30 Urine Protein NEGATIVE mg/dL (NEGATIVE) 05/12/19 17:30 Urine Glucose (UA) NEGATIVE mg/dL (NEGATIVE) 05/12/19 17:30 Urine Ketones NEGATIVE mg/dL (NEGATIVE) 05/12/19 17:30 Urine Blood NEGATIVE (NEGATIVE) 05/12/19 17:30 Urine Nitrite NEGATIVE (NEGATIVE) 05/12/19 17:30 Urine Bilirubin NEGATIVE (NEGATIVE) 05/12/19 17:30 Urine Urobilinogen 2.0 mg/dL (<2.0) H 05/12/19 17:30 Ur Leukocyte Esterase TRACE (NEGATIVE) H 05/12/19 17:30 Urine Ascorbic Acid NEGATIVE (NEGATIVE) 05/12/19 17:30 Urine Opiates Screen NEGATIVE 05/12/19 17:30 Urine Methadone Screen NEGATIVE 05/12/19 17:30 Ur Barbiturates Screen NEGATIVE 05/12/19 17:30 Ur Phencyclidine Scrn NEGATIVE 05/12/19 17:30 Ur Amphetamines Screen NEGATIVE 05/12/19 17:30 U Benzodiazepines Scrn NEGATIVE 05/12/19 17:30 Urine Cocaine Screen NEGATIVE 05/12/19 17:30 U Marijuana (THC) Screen NEGATIVE 05/12/19 17:30 RPR NONREACTIVE (NONREACTIVE) 05/12/19 17:52 Blood Type A POSITIVE 05/12/19 17:52 Antibody Screen NEGATIVE 05/12/19 17:52 Plan Plan of Treatment: f/u at [facility] in 4 wks Time Spent: Less than 30 Minutes
== END 2019-05-15 13:54 | disposition home or self-care (01) | DRG 806 ==
LOC: LR 17:16 → 2S 05-13 13:35
PROVIDERS: ADMIT Student in an Organized Health Care Education/Training Program; ATTEND Student in an Organized Health Care Education/Training Program
PROC: 10E0XZZ Delivery of Products of Conception, External Approach (ICD-10-PCS; principal; 2019-05-13)
PROC: 3E033VJ Introduction of Other Hormone into Peripheral Vein, Percutaneous Approach (ICD-10-PCS; 2019-05-13)
PROC: 10907ZC Drainage of Amniotic Fluid, Therapeutic from Products of Conception, Via Natural or Artificial Opening (ICD-10-PCS; 2019-05-13)
PROC: 3E02340 Introduction of Influenza Vaccine into Muscle, Percutaneous Approach (ICD-10-PCS; 2019-05-15)
DX: O36.5930 Maternal care for other known or suspected poor fetal growth, third trimester, not applicable or unspecified (principal); F11.20 Opioid dependence, uncomplicated; Z37.0 Single live birth; O99.323 Drug use complicating pregnancy, third trimester; Z23 Encounter for immunization; O99.824 Streptococcus B carrier state complicating childbirth; O99.214 Obesity complicating childbirth; E66.01 Morbid (severe) obesity due to excess calories; O99.334 Smoking (tobacco) complicating childbirth; F17.210 Nicotine dependence, cigarettes, uncomplicated; T40.2X5A Adverse effect of other opioids, initial encounter; O69.81X0 Labor and delivery complicated by cord around neck, without compression, not applicable or unspecified; Z86.14 Personal history of Methicillin resistant Staphylococcus aureus infection; Z91.040 Latex allergy status; Z3A.39 39 weeks gestation of pregnancy
CPT/HCPCS: 36415; 80053; 80307; 81005; 85025; 85027; 85610; 85730; 86592; 86850; 86900; 86901; 87522; 88307; 90686; 94760; J0571; J2540; J2590; J3010; J3490; J7060

== ENCOUNTER → 2019-11-03 | Outpatient (CLI) | payer MEDICAID ==
--- NOTE | 2019-11-03 14:59 | RADIOLOGY REPORT (SQ) ---
EXAM DESCRIPTION: LUMBAR SPINE COMPLETE IMAGES COMPLETED DATE/TIME: 11/03/2019 2:18 pm REASON FOR STUDY: BACK PAIN COMPARISON: None. NUMBER OF VIEWS: Five views including obliques. TECHNIQUE: AP, lateral, oblique, and sacral radiographic images acquired of the lumbar spine. LIMITATIONS: None. FINDINGS: MINERALIZATION: Normal. SEGMENTATION: Normal. No transitional anatomy. ALIGNMENT: Normal. VERTEBRAE: Mild old compression changes at L1. DISCS: There is narrowing of the L4-5 disc space. POSTERIOR ELEMENTS: Pedicles and facets are intact. No pars defect or posterior arch defects. HARDWARE: None in the spine. PARASPINAL SOFT TISSUES: Normal. PELVIS: Intact as visualized. No fractures or worrisome bone lesions. SI joints intact. OTHER: No other significant finding. IMPRESSION: Old, mild compression changes at L1. Degenerative disc disease at L4-5. TECHNICAL DOCUMENTATION: JOB ID: [id number] 2010 [employer]- All Rights Reserved Reading location - IP/workstation name: [email or web address]
== END ==
LOC: OD 13:17
PROVIDERS: ATTEND Pediatrics
DX: M54.9 Dorsalgia, unspecified (principal)
CPT/HCPCS: 72110